=== PATIENT | male | born 1940 | race Caucasian/White ===

== ENCOUNTER 2020-03-18 14:06 | Observation (INO) ==
--- NOTE | 2020-03-18 14:11 | Emergency Department Note ---
Impression & Plan Cystitis, Dehydration, BLAKE (acute kidney injury), Benign prostatic hyperplasia ED Provider Note NAME: CAPRICE GUILLEN AGE: 80 SEX: M : 1940 ARRIVES VIA: Ambulance INFORMANT: Patient, ED PROVIDER(S): Josesito Block MD Chief Complaint: Difficulty with urination HPI: The patient has had about 5 days of worsening difficulty with urination associated burning with urination. Patient states he is not had these symptoms before. The patient denies any prior history of prostate issues. The patient does not take any narcotics or allergy medications. The patient has had some lower abdominal fullness. Patient states he has been having bowel movements but does have some scant blood with wiping. Patient denies any nausea but did have 2 episodes of vomiting earlier this week. The patient denies shortness of breath or chest pains, loss of taste or smell or Covid contacts or symptoms. The patient was seen at [facility] and referred here for further evaluation and treatment. The patient denies any prior history of kidney stones. The patient states that he does have some hesitancy and frequency issues and feels as though he is only able to urinate a very small amount like a teaspoon at a time. ROS: See HPI for pertinent positives and negatives. A total of 10 systems were reviewed and otherwise negative. Past medical history: See below Surgical history: See below Social history: See below Physical Exam: GENERAL: Wearing a mask. NAD, non-toxic. EYE EXAM: Normal conjunctiva. PERRL, no anisocoria and EOM's grossly intact w/o pain. NECK: Supple, no nuchal rigidity, no adenopathy, non-tender. No signs of meningismus. LUNGS: Clear to auscultation. Normal chest wall mechanics. HEART: NSR, no MRG. ABDOMEN: Abdomen soft, non-tender, normo-active bowel sounds, no masses, no rebound or guarding. No obvious suprapubic fullness. BACK: No CVA TTP. SKIN: No rashes and no bruising. UPPER EXTREMITIES: Upper extremities are grossly normal. LOWER EXTREMITIES: Grossly normal, no edema. NEURO EXAM: A&O x3, cranial nerves II-XII grossly intact, normal speech, moves all 4 extremities on command w/o issue. Differential diagnoses: Testicular torsion, mass, infection, hernia, hydrocele, epididymitis, STI, trauma, intra-abdominal process, as well as other pathologies. Course: Patient was seen and evaluated the bedside. Full history physical exam was performed. EKG: None Imaging Studies: Radiology results as stated below per my review in the radiologist's interpretation: CT SCAN OF THE ABDOMEN AND PELVIS WITHOUT CONTRAST CLINICAL HISTORY: Acute renal insufficiency. Difficulty with urination. COMPARISON STUDY: No previous studies for comparison. TECHNIQUE: CT scan of the abdomen and pelvis was performed from the lung bases to the proximal femurs. Images are reviewed in the axial, sagittal, and coronal planes. IV contrast was not administered for this examination. A dose lowering technique was utilized adhering to the principles of ALARA. CT DOSE: 502.99 mGy.cm FINDINGS: Lower chest: There is pulmonary emphysema. There is mild lower lobe cylindrical bronchiectasis. There is subpleural reticulation. There is a small hiatal hernia. Liver: There are hypodense hepatic lesions which approaches water attenuation. The largest measures 25 mm. These likely represent cysts. Gallbladder: Surgically absent Spleen: The spleen is lobulated. No focal masses are visualized in this noncontrast study Pancreas: Unremarkable. Adrenal glands: Unremarkable. Kidneys: There are multiple large bilateral renal cysts measuring up to 12 cm in diameter on the left and 5 cm on the right. In addition there is a probable 9 mm hyperdense cyst on the left. There are thin mural calcifications within the lower pole right renal cyst. There is an indeterminate 13 mm right renal mass, possibly solid. Dedicated renal imaging could be obtained in follow-up for further evaluation. There is no hydronephrosis. No ureteral calculi are visualized. Bowel: There are no transition zones to indicate bowel obstruction. There is no evidence of acute diverticulitis. There is no evidence of acute appendicitis. Peritoneum: There is no intraperitoneal free air or abdominal ascites. Vasculature: The abdominal aorta is normal in course and caliber. Adenopathy: There is a borderline enlarged right perivesical lymph node measuring 11 mm in diameter. Pelvic viscera: The prostate is enlarged measuring 6.5 cm in diameter. There is bladder wall thickening. While this may simply be secondary to chronic bladder outlet obstruction, a cystitis cannot be excluded. There is a penile calcification. This is extra urethral. Skeletal structures: The bones are osteopenic. There are old T12 and L1 compression deformities. IMPRESSION: 1. No evidence of bowel obstruction. No evidence of free air 2. Diverticulosis. No evidence of acute diverticulitis. No evidence of acute appendicitis 3. Large bilateral renal cysts. Indeterminate 13 mm right renal mass. Dedicated renal imaging could be obtained in follow-up as deemed clinically appropriate 4. No renal, ureteral, or bladder calculi identified 5. Moderate to marked prostatomegaly. Bladder wall thickening. 6. Borderline enlarged 11 mm right perivesical lymph node ACT 112: Negative or not required by law. Electronically signed by: Malcolm Baez M.D. 03/18/2020 4:40 PM Dictated: 03/18/20 1632Transcribed: 03/18/20 1634 Cardiac monitoring: An order was placed for continuous cardiac monitoring. The monitor shows a rate of 73 with sinus rhythm. MDM: Patient was seen due to concern for difficulty with voiding. Blood work is obt ained along with a bladder scan. Patient was given a small amount of IV fluids. The patient does have a creatinine of 2. No prior blood work for comparison. The patient had a mild leukocytosis with normal H&H and platelet count. The patient did have likely dehydration related symptoms as the patient was not retaining with bladder scan not showing retention. LFTs unremarkable. Urinalysis is difficult to interpret as the patient has been taking Azo. The patient does have bacteria present. Will be be treated presumptively especially in light of the patient's likely chronic bladder outlet obstruction and associated bladder wall thickening. The patient was treated with Rocephin. I did speak with the case worker and unfortunately given the patient does not have an outpatient provider cannot order outpatient blood work to reassess the patient's kidney function in 1 to 2 days. Given this I did speak with on-call hospitalist Dr. Cota. Patient was admitted to the medicine service. Past Med/Surg History Social History (Updated 03/18/20 @ 14:29 by Josesito Block MD) Smoking Status: Never smoker Hx Alcohol Use: No Hx Substance Use: No Preferred Language: Mac[place] Feels Safe at Home: Yes Allergies Allergies Allergy/AdvReac Type Severity Reaction Status Date / Time No Known Allergies Allergy Verified 03/18/20 18:44 Home Meds Home Medications Medication Instructions Recorded Confirmed alprazolam 0.5 mg PO TID PRN 03/18/20 03/18/20 lisinopril 2.5 mg PO QPM 03/18/20 03/18/20 pravastatin 40 mg PO HS 03/18/20 03/18/20 tamsulosin 0.8 mg PO HS 03/18/20 03/18/20 trazodone 100 mg PO HS 03/18/20 03/18/20 Results & Data (ED) Vital Signs Vital Signs - 24 hr 03/18/20 14:06 03/18/20 14:16 03/18/20 14:24 Temperature 36.6 C Temperature Source Oral Pulse Rate 85 87 85 Pulse Rate from SpO2 Sensor 88 Pulse Rhythm Regular Regular Respiratory Rate 18 19 18 Respiratory Effort / Characteristics Non-Labored Spontaneous Respiratory Depth Normal Respiratory Pattern Regular Blood Pressure 103/66 103/66 Blood Pressure Mean 78 71 Pulse Oximetry 95 95 95 Oxygen Delivery Method Room Air Room Air Sepsis Recent Fever Within 48 Hours No Sepsis New/Unexplained Change in Mental Status No Sepsis Action Taken by Nursing No Action Required 03/18/20 15:00 03/18/20 16:00 03/18/20 16:30 Temperature Temperature Source Pulse Rate 72 Pulse Rate from SpO2 Sensor 76 75 Pulse Rhythm Respiratory Rate 14 22 24 Respiratory Effort / Characteristics Respiratory Depth Respiratory Pattern Blood Pressure 98/62 L 106/62 Blood Pressure Mean 70 67 Pulse Oximetry 95 95 Oxygen Delivery Method Sepsis Recent Fever Within 48 Hours Sepsis New/Unexplained Change in Mental Status Sepsis Action Taken by Nursing 03/18/20 17:00 03/18/20 17:30 03/18/20 18:00 Temperature Temperature Source Pulse Rate 68 71 75 Pulse Rate from SpO2 Sensor Pulse Rhythm Respiratory Rate 13 21 21 Respiratory Effort / Characteristics Respiratory Depth Respiratory Pattern Blood Pressure Blood Pressure Mean Pulse Oximetry Oxygen Delivery Method Sepsis Recent Fever Within 48 Hours Sepsis New/Unexplained Change in Mental Status Sepsis Action Taken by Nursing 03/18/20 18:30 03/18/20 18:37 03/18/20 19:00 Temperature Temperature Source Pulse Rate 74 75 71 Pulse Rate from SpO2 Sensor 74 71 Pulse Rhythm Respiratory Rate 22 21 22 Respiratory Effort / Characteristics Respiratory Depth Respiratory Pattern Blood Pressure 112/63 108/64 Blood Pressure Mean 83 76 Pulse Oximetry 93 93 Oxygen Delivery Method Sepsis Recent Fever Within 48 Hours Sepsis New/Unexplained Change in Mental Status Sepsis Action Taken by Nursing 03/18/20 19:32 Temperature Temperature Source Pulse Rate 73 Pulse Rate from SpO2 Sensor Pulse Rhythm Respiratory Rate 22 Respiratory Effort / Characteristics Respiratory Depth Respiratory Pattern Blood Pressure 112/63 Blood Pressure Mean 83 Pulse Oximetry 94 Oxygen Delivery Method Sepsis Recent Fever Within 48 Hours Sepsis New/Unexplained Change in Mental Status Sepsis Action Taken by Long-Term Medications Current Medication List: was personally reviewed by me Laboratory Data Attestation: I reviewed the patient's lab results. Result diagrams: 03/18/20 14:29 03/18/20 14:29 Lab Results 03/18/20 03/18/20 03/18/20 Range/Units 14:29 14:29 14:29 WBC 12.61 H (4.8-10.8) K/uL RBC 4.64 L (4.7-6.1) M/uL Hgb 14.8 (14.0-18.0) g/dL Hct 44.3 (42-52) % MCV 95.5 (80-100) fL MCH 31.9 (25-34) pg MCHC 33.4 (32-36) g/dL RDW Std Deviation 48.3 H (36.4-46.3) fL RDW Coeff of Yang 13.8 (11.5-14.5) % Plt Count 285 (130-400) K/uL MPV 9.3 (7.4-10.4) fL Immature Gran % (Auto) 0.5 % Neut % (Auto) 79.3 % Lymph % (Auto) 9.3 % Baxter % (Auto) 9.1 % Eos % (Auto) 1.6 % Baso % (Auto) 0.2 % Neut # (Auto) 10.00 H (1.4-6.5) K/uL Lymph # (Auto) 1.17 L (1.2-3.4) K/uL Baxter # (Auto) 1.15 H (0.11-0.59) K/uL Eos # (Auto) 0.20 (0-0.5) K/uL Baso # (Auto) 0.03 (0-0.2) K/uL Immature Gran # (Auto) 0.06 H (0.00-0.02) K/uL PT 11.6 (9.0-12.0) Seconds INR 1.1 (0.9-1.1) Sodium 136 (136-145) mmol/L Potassium 4.5 (3.5-5.1) mmol/L Chloride 108 H (98-107) mmol/L Carbon Dioxide 20 L (21-32) mmol/L Anion Gap 7.0 (3-11) BUN 29 H (7-18) mg/dl Creatinine 2.07 H (0.6-1.4) mg/dl Est Cr Clr Drug Dosing 20.9 ml/min Est GFR ( Amer) 33.8 Est GFR (Non-Af Amer) 29.2 BUN/Creatinine Ratio 14.2 (10-20) Glucose 100 H (70-99) mg/dl Calcium 9.4 (8.5-10.1) mg/dl Magnesium 2.3 (1.8-2.4) mg/dl Total Bilirubin 0.7 (0.2-1) mg/dl AST 30 (15-37) U/L ALT 42 (12-78) U/L Alkaline Phosphatase 113 (45-117) U/L Total Protein 8.6 H (6.4-8.2) gm/dl Albumin 2.8 L (3.4-5.0) gm/dl Globulin 5.8 H (2.5-4.0) gm/dl Albumin/Globulin Ratio 0.5 L (0.9-2) TSH 1.000 (0.300-4.500) uIu/ml Urine Color Urine Appearance (Clear) Urine pH (4.5-7.5) Ur Specific [place] (1.000-1.060) Urine Protein (Negative) Urine Glucose (UA) (Negative) Urine Ketones (Negative) Urine Blood (Negative) Urine Nitrite (Negative) Urine Bilirubin (Negative) Urine Urobilinogen (Negative) Ur Leukocyte Esterase (Negative) Urine RBC (0-4) /hpf Urine WBC (0-5) /hpf Ur Epithelial Cells (0-5) /lpf Urine Bacteria (Negative) Hyaline Casts (0-5) /lpf Granular Casts (0) /lpf Urine Mucus (None Prsent) 03/18/20 Range/Units 17:35 WBC (4.8-10.8) K/uL RBC (4.7-6.1) M/uL Hgb (14.0-18.0) g/dL Hct (42-52) % MCV (80-100) fL MCH (25-34) pg MCHC (32-36) g/dL RDW Std Deviation (36.4-46.3) fL RDW Coeff of Yang (11.5-14.5) % Plt Count (130-400) K/uL MPV (7.4-10.4) fL Immature Gran % (Auto) % Neut % (Auto) % Lymph % (Auto) % Baxter % (Auto) % Eos % (Auto) % Baso % (Auto) % Neut # (Auto) (1.4-6.5) K/uL Lymph # (Auto) (1.2-3.4) K/uL Baxter # (Auto) (0.11-0.59) K/uL Eos # (Auto) (0-0.5) K/uL Baso # (Auto) (0-0.2) K/uL Immature Gran # (Auto) (0.00-0.02) K/uL PT (9.0-12.0) Seconds INR (0.9-1.1) Sodium (136-145) mmol/L Potassium (3.5-5.1) mmol/L Chloride (98-107) mmol/L Carbon Dioxide (21-32) mmol/L Anion Gap (3-11) BUN (7-18) mg/dl Creatinine (0.6-1.4) mg/dl Est Cr Clr Drug Dosing ml/min Est GFR ( Amer) Est GFR (Non-Af Amer) BUN/Creatinine Ratio (10-20) Glucose (70-99) mg/dl Calcium (8.5-10.1) mg/dl Magnesium (1.8-2.4) mg/dl Total Bilirubin (0.2-1) mg/dl AST (15-37) U/L ALT (12-78) U/L Alkaline Phosphatase (45-117) U/L Total Protein (6.4-8.2) gm/dl Albumin (3.4-5.0) gm/dl Globulin (2.5-4.0) gm/dl Albumin/Globulin Ratio (0.9-2) TSH (0.300-4.500) uIu/ml Urine Color [place] Urine Appearance Clear (Clear) Urine pH (4.5-7.5) Ur Specific [place] 1.016 (1.000-1.060) Urine Protein Negative (Negative) Urine Glucose (UA) (Negative) Urine Ketones (Negative) Urine Blood (Negative) Urine Nitrite (Negative) Urine Bilirubin (Negative) Urine Urobilinogen (Negative) Ur Leukocyte Esterase (Negative) Urine RBC 0-4 (0-4) /hpf Urine WBC 0-5 (0-5) /hpf Ur Epithelial Cells 0-5 (0-5) /lpf Urine Bacteria 1+ H (Negative) Hyaline Casts 10-30 H (0-5) /lpf Granular Casts 1-5 H (0) /lpf Urine Mucus Present A (None Prsent) Administered Medications Discontinued Medications Sodium Chloride (Nss) 500 mls @ 999 mls/hr IV .Q31M EDY Stop: 03/18/20 15:00 Last Infusion: 03/18/20 15:28 Dose: 0 mls/hr Documented by: [id number] Admin: 03/18/20 14:48 Dose: 999 mls/hr Documented by: [id number] Sodium Chloride (Nss 1000ml) 1,000 mls @ 999 mls/hr IV .Q1H1M ONE Stop: 03/18/20 17:50 Last Infusion: 03/18/20 18:33 Dose: 0 mls/hr Documented by: [id number] Admin: 03/18/20 17:04 Dose: 999 mls/hr Documented by: [id number] Ceftriaxone Sodium (Rocephin) 2,000 mg in 70 mls @ 140 mls/hr IV NOW STA Stop: 03/18/20 17:51 Last Infusion: 03/18/20 18:33 Dose: 0 mls/hr Documented by: [id number] Admin: 03/18/20 17:41 Dose: 140 mls/hr Documented by: [id number] Discharge Plan Visit Data Chief Complaint: Unable to Void ED Provider: Josesito Block Discharge Problem: Cystitis, Dehydration, BLAKE (acute kidney injury), Benign prostatic hyperplasia Forms Stand Alone Forms: [employer] Prescriptions Prescriptions: No Action pravastatin 40 mg tablet 40 mg PO HS RF: 0 alprazolam 0.5 mg tablet 0.5 mg PO TID PRN (Reason: Anxiety) RF: 0 tamsulosin 0.4 mg capsule 0.8 mg PO HS RF: 0 trazodone 100 mg tablet 100 mg PO HS RF: 0 lisinopril 2.5 mg tablet 2.5 mg PO QPM RF: 0 Discharge Problem: Benign prostatic hyperplasia Qualifiers: Lower urinary tract symptom presence: symptoms present Lower urinary tract symptom detail: urinary frequency Qualified Code(s): N40.1 - Benign prostatic hyperplasia with lower urinary tract symptoms
[2020-03-18] MEDS ORDERED: SODIUM CHLORIDE 0.9% 500 ML IV SCH (14:30)
[2020-03-18 14:42] LABS: Basophils # (auto) 0.03 K/uL (0-0.2); Basophils % (auto) 0.2 %; Eosinophils % (auto) 1.6 %; Hematocrit (blood only) 44.3 % (42-52); Hemoglobin 14.8 g/dL (14.0-18.0); Immature Granulocytes # (auto) 0.06 K/uL (0.00-0.02); Immature Granulocytes % (auto) 0.5 %; Lymphocytes # (auto) 1.17 K/uL (1.2-3.4); Lymphocytes % (auto) 9.3 %; Mean Corpuscular Hemoglobin 31.9 pg (25-34); Mean Corpuscular Hgb Conc 33.4 g/dL (32-36); Mean Corpuscular Volume 95.5 fL (80-100); Mean Platelet Volume 9.3 fL (7.4-10.4); Monocytes # (auto) 1.15 K/uL (0.11-0.59); Monocytes % (auto) 9.1 %; Neutrophils % (auto) 79.3 %; Platelet Count 285 K/uL (130-400); RDW Coefficient of Variation 13.8 % (11.5-14.5); RDW Standard Deviation 48.3 fL (36.4-46.3); Red Blood Count 4.64 M/uL (4.7-6.1); White Blood Count 12.61 K/uL (4.8-10.8)
[2020-03-18 14:55] LABS: INR 1.1 (0.9-1.1); Prothrombin Time 11.6 Seconds (9.0-12.0)
[2020-03-18 15:04] LABS: Albumin Level 2.8 gm/dl (3.4-5.0); BUN Creatinine Ratio 14.2 (10-20); Calcium 9.4 mg/dl (8.5-10.1); Creatinine Clr Calc Pharmacy 20.9 ml/min; Est GFR (African American) 33.8; Est GFR (Non-African American) 29.2; Magnesium 2.3 mg/dl (1.8-2.4); Potassium 4.5 mmol/L (3.5-5.1)
[2020-03-18 15:15] LABS: Albumin Globulin Ratio 0.5 (0.9-2); Bilirubin,Total 0.7 mg/dl (0.2-1); Globulin 5.8 gm/dl (2.5-4.0); Total Protein 8.6 gm/dl (6.4-8.2)
--- NOTE | 2020-03-18 16:01 | Electrocardiogram Report ---
Test Reason : Blood Pressure : / mmHG Vent. Rate : 076 BPM Atrial Rate : 076 BPM P-R Int : 190 ms QRS Dur : 130 ms QT Int : 410 ms P-R-T Axes : 058 -57 074 degrees QTc Int : 461 ms Normal sinus rhythm Left axis deviation Left bundle branch block Abnormal ECG No previous ECGs available Confirmed by Juan M Perez ([id number]) on 03/18/2020 4:01:00 PM Referred By: ER Confirmed By:Angel Perez
--- NOTE | 2020-03-18 16:42 | CT Scan Report ---
CT SCAN OF THE ABDOMEN AND PELVIS WITHOUT CONTRAST CLINICAL HISTORY: Acute renal insufficiency. Difficulty with urination. COMPARISON STUDY: No previous studies for comparison. TECHNIQUE: CT scan of the abdomen and pelvis was performed from the lung bases to the proximal femurs . Images are reviewed in the axial, sagittal, and coronal planes. IV contrast was not administered fo r this examination. A dose lowering technique was utilized adhering to the principles of ALARA. CT DOSE: 502.99 mGy.cm FINDINGS: Lower chest: There is pulmonary emphysema. There is mild lower lobe cylindrical bronchiectasis. There is subpleural reticulation. There is a small hiatal hernia. Liver: There are hypodense hepatic lesions which approaches water attenuation. The largest measures 2 5 mm. These likely represent cysts. Gallbladder: Surgically absent Spleen: The spleen is lobulated. No focal masses are visualized in this noncontrast study Pancreas: Unremarkable. Adrenal glands: Unremarkable. Kidneys: There are multiple large bilateral renal cysts measuring up to 12 cm in diameter on the left and 5 cm on the right. In addition there is a probable 9 mm hyperdense cyst on the left. There are t hin mural calcifications within the lower pole right renal cyst. There is an indeterminate 13 mm righ t renal mass, possibly solid. Dedicated renal imaging could be obtained in follow-up for further eval uation. There is no hydronephrosis. No ureteral calculi are visualized. Bowel: There are no transition zones to indicate bowel obstruction. There is no evidence of acute div erticulitis. There is no evidence of acute appendicitis. Peritoneum: There is no intraperitoneal free air or abdominal ascites. Vasculature: The abdominal aorta is normal in course and caliber. Adenopathy: There is a borderline enlarged right perivesical lymph node measuring 11 mm in diameter. Pelvic viscera: The prostate is enlarged measuring 6.5 cm in diameter. There is bladder wall thickeni ng. While this may simply be secondary to chronic bladder outlet obstruction, a cystitis cannot be ex cluded. There is a penile calcification. This is extra urethral. Skeletal structures: The bones are osteopenic. There are old T12 and L1 compression deformities. IMPRESSION: 1. No evidence of bowel obstruction. No evidence of free air 2. Diverticulosis. No evidence of acute diverticulitis. No evidence of acute appendicitis 3. Large bilateral renal cysts. Indeterminate 13 mm right renal mass. Dedicated renal imaging could b e obtained in follow-up as deemed clinically appropriate 4. No renal, ureteral, or bladder calculi identified 5. Moderate to marked prostatomegaly. Bladder wall thickening. 6. Borderline enlarged 11 mm right perivesical lymph node ACT 112: Negative or not required by law. Electronically signed by: Malcolm Baez M.D. 03/18/2020 4:40 PM
[2020-03-18] MEDS ORDERED: SODIUM CHLORIDE 0.9% 1000ML 1,000 ML IV ONE (16:50)
[2020-03-18] MEDS ORDERED: cefTRIAXone SODIUM 2,000 MG/70 ML BAG IV STA (17:22)
[2020-03-18 17:53] LABS: Appearance Urine Clear (Clear); Color Urine Orange
[2020-03-18 18:00] LABS: Protein Urine Negative (Negative); Specific Gravity Urine 1.016 (1.000-1.060); Sulfosalicylic Acid Urine Negative (Negative)
[2020-03-18 18:04] LABS: Mucus Urine Present (None Prsent)
[2020-03-18 18:05] LABS: Epithelial Cell Urine 0-5 /lpf (0-5)
[2020-03-18 18:06] LABS: Bacteria Urine 1+ (Negative); RBC Urine 0-4 /hpf (0-4); WBC Urine 0-5 /hpf (0-5)
[2020-03-18] MEDS ORDERED: CALCIUM CARBONATE 500 MG CHEWABLE TAB PO STA (19:12)
[2020-03-18] MEDS ORDERED: ONDANSETRON INJ 2 MG/ML 2 ML VIAL IV STA (19:12)
[2020-03-18] MEDS ORDERED: ACETAMINOPHEN 325 MG TAB PO PRN (19:57)
--- NOTE | 2020-03-18 20:05 | History & Physical Report ---
Date of Service March 18, 2020 Assessment & Plan (1) BLAKE (acute kidney injury): UTI Patient presents with clear symptoms of UTI, urinary frequency and discomfort with urination Started Using AZO which helped somewhat with symptoms WBC mildly elevated at 12 K UA with bacteria and mucus Follow urine cultx Started on empiric ceftriaxone, will continue BLAKE Cr elevated at 2.0 however no known baseline Cr at this time as pt resides in [place] and follows with his health care providers there Cr 1.3 in 2009 per our records possibly d/t dehydration, poor appetite and hx of vomiting Started on IVF in ED, will continue On CT large renal cysts noted and R renal mass - not clear if this is new and will need to obtain records from [place] providers - HIM consulted, PCP address in HPI above hold lisinopril Follow BMP (2) Benign prostatic hyperplasia: cont. home tamsulosin (3) HTN (hypertension) with goal to be determined: hold lisinopril for now d/t BLAKE monitor BP (4) HLD (hyperlipidemia): cont. home statin DVT ppx: SCDs - encourage ambulation Code: Full History of Present Illness Chief Complaint: Urinary frequency, dysuria Primary Care Provider: NO PCP Patient is an 80-year-old male, with CAD s/p stent placement, history of arrhythmia, status post pacemaker placement in [place] (Dr. Lynn), HTN, HLD, hx of CVA who usually follows with primary care doctor, Dr. Bernstein in [place], [place] and now presents with urinary frequency and dysuria. Patient states that he has been in [place] since May, he resides with his son Melvin Montes. Patient reports that he did not have any medical issues for a long time, until now. Patient reports that he had nausea and vomiting since Sunday (4 days ago), on Sunday he noticed increased urinary frequency, and severe discomfort with urination. He also reports poor appetite. In the ED patient was found to have elevated creatinine at 2.0. Bladder scan did not show urinary retention. Urine showed bacteria, and mucus, which was concerning for dehydration and UTI. Patient's urine is red-colored however he recently started to use AZO, which he obtained as outpatient. Patient denies any fevers, chills, chest pain, shortness of breath, abdominal pain. CT of the abdomen pelvis was also obtained in ED, which notes renal cysts and right renal mass. It is unclear how chronic these conditions are as patient follows with his healthcare providers in [place]. Patient reports that his PCP Dr. Damon Bernstein, [address] [facility], . In the ED patient was given IV fluids and started on ceftriaxone. [facility] by Dr. Gibson in 2009, BMP from 2009, shows creatinine of 1.3 and GFR 58, BUN 22. Allergies Allergy/AdvReac Type Severity Reaction Status Date / Time No Known Allergies Allergy Verified 03/18/20 18:44 Home Medications Medication Instructions Recorded Confirmed Type alprazolam 0.5 mg PO TID PRN 03/18/20 03/18/20 History lisinopril 2.5 mg PO QPM 03/18/20 03/18/20 History pravastatin 40 mg PO HS 03/18/20 03/18/20 History tamsulosin 0.8 mg PO HS 03/18/20 03/18/20 History trazodone 100 mg PO HS 03/18/20 03/18/20 History Past Med/Surg History Medical History (Updated 03/18/20 @ 20:27 by Dane Cota MD) Anxiety BPH (benign prostatic hyperplasia) CAD (coronary artery disease) HLD (hyperlipidemia) HTN (hypertension) with goal to be determined Pacemaker Family History Father Rheumatic fever Social History Smoking Status: Never smoker Hx Alcohol Use: No Hx Substance Use: No Preferred Language: Brazilian Feels Safe at Home: Yes Review of Systems Review of Systems: All systems reviewed & are unremarkable except as noted in HPI & below Constitutional: + anorexia; no fever and no chills Eyes: no problem reported Ear, Nose, Mouth, Throat: no problem reported Respiratory: no cough, no dyspnea and no problem reported Cardiovascular: no chest pain and no palpitations Gastrointestinal: + nausea and + vomiting (improved); no abdominal pain Genitourinary: + dysuria and + urinary urgency Musculoskeletal: no problem reported Integumentary: no problem reported Neurologic: no problem reported Psychiatric: no problem reported Endocrine: no problem reported Hematologic / Lymphatic: no problem reported Allergy / Immunological: no problem reported Physical Exam Constitutional: WD/WN, vitals as above Eyes: PERRL, conjunctivae normal, anicteric sclerae ENMT: external ear and nose normal, oropharynx normal Neck: normal visual inspection Respiratory: normal respiratory effort, lungs clear to auscultation Auscultation: no crackles, no rhonchi and no wheezes Cardiovascular: RRR, no murmur, no edema Chest (Breasts): Chest: normal inspection of chest Gastrointestinal (Abdomen): Inspection/Auscultation: abdomen normal to inspection and normal bowel sounds; abdomen not distended Percussion/Palpation: abdomen soft; abdomen nontender, no guarding and abdomen not rigid Musculoskeletal: no cyanosis or clubbing, extremities motor strength 5/5 Skin: no rashes, warm and dry Neurologic: PERRL, EOMI, accommodation nl, no face palsy, no dysarthria moves all extremities Psychiatric: A+Ox3, euthymic affect Genitourinary: no CVA tenderness Lymphatic: no lymphedema Results & Data Results & Data ([facility]) Vital Signs (Past 12 Hours) Vital Signs Temp Pulse Resp BP Pulse Ox 03/18/20 19:32 73 22 112/63 94 03/18/20 19:00 71 22 108/64 93 03/18/20 18:37 75 21 112/63 93 03/18/20 18:30 74 22 03/18/20 18:00 75 21 03/18/20 17:30 71 21 03/18/20 17:00 68 13 03/18/20 16:30 72 24 03/18/20 16:00 22 106/62 95 03/18/20 15:00 14 98/62 L 95 03/18/20 14:24 85 18 95 03/18/20 14:16 87 19 103/66 95 03/18/20 14:06 36.6 C 85 18 103/66 95 Laboratory Results 03/18/20 03/18/20 03/18/20 Range/Units 17:35 14:29 14:29 WBC (4.8-10.8) K/uL RBC (4.7-6.1) M/uL Hgb (14.0-18.0) g/dL Hct (42-52) % MCV (80-100) fL MCH (25-34) pg MCHC (32-36) g/dL RDW Std Deviation (36.4-46.3) fL RDW Coeff of Yang (11.5-14.5) % Plt Count (130-400) K/uL MPV (7.4-10.4) fL Immature Gran % (Auto) % Neut % (Auto) % Lymph % (Auto) % [place] % (Auto) % Eos % (Auto) % Baso % (Auto) % Neut # (Auto) (1.4-6.5) K/uL Lymph # (Auto) (1.2-3.4) K/uL [place] # (Auto) (0.11-0.59) K/uL Eos # (Auto) (0-0.5) K/uL Baso # (Auto) (0-0.2) K/uL Immature Gran # (Auto) (0.00-0.02) K/uL PT 11.6 (9.0-12.0) Seconds INR 1.1 (0.9-1.1) Sodium 136 (136-145) mmol/L Potassium 4.5 (3.5-5.1) mmol/L Chloride 108 H (98-107) mmol/L Carbon Dioxide 20 L (21-32) mmol/L Anion Gap 7.0 (3-11) BUN 29 H (7-18) mg/dl Creatinine 2.07 H (0.6-1.4) mg/dl Est Cr Clr Drug Dosing 20.9 ml/min Est GFR ( Amer) 33.8 Est GFR (Non-Af Amer) 29.2 BUN/Creatinine Ratio 14.2 (10-20) Glucose 100 H (70-99) mg/dl Calcium 9.4 (8.5-10.1) mg/dl Magnesium 2.3 (1.8-2.4) mg/dl Total Bilirubin 0.7 (0.2-1) mg/dl AST 30 (15-37) U/L ALT 42 (12-78) U/L Alkaline Phosphatase 113 (45-117) U/L Total Protein 8.6 H (6.4-8.2) gm/dl Albumin 2.8 L (3.4-5.0) gm/dl Globulin 5.8 H (2.5-4.0) gm/dl Albumin/Globulin Ratio 0.5 L (0.9-2) TSH 1.000 (0.300-4.500) uIu/ml Urine Color [place] Urine Appearance Clear (Clear) Urine pH (4.5-7.5) Ur Specific [place] 1.016 (1.000-1.060) Urine Protein Negative (Negative) Urine Glucose (UA) (Negative) Urine Ketones (Negative) Urine Blood (Negative) Urine Nitrite (Negative) Urine Bilirubin (Negative) Urine Urobilinogen (Negative) Ur Leukocyte Esterase (Negative) Urine RBC 0-4 (0-4) /hpf Urine WBC 0-5 (0-5) /hpf Ur Epithelial Cells 0-5 (0-5) /lpf Urine Bacteria 1+ H (Negative) Hyaline Casts 10-30 H (0-5) /lpf Granular Casts 1-5 H (0) /lpf Urine Mucus Present A (None Prsent) 03/18/20 Range/Units 14:29 WBC 12.61 H (4.8-10.8) K/uL RBC 4.64 L (4.7-6.1) M/uL Hgb 14.8 (14.0-18.0) g/dL Hct 44.3 (42-52) % MCV 95.5 (80-100) fL MCH 31.9 (25-34) pg MCHC 33.4 (32-36) g/dL RDW Std Deviation 48.3 H (36.4-46.3) fL RDW Coeff of Yang 13.8 (11.5-14.5) % Plt Count 285 (130-400) K/uL MPV 9.3 (7.4-10.4) fL Immature Gran % (Auto) 0.5 % Neut % (Auto) 79.3 % Lymph % (Auto) 9.3 % [place] % (Auto) 9.1 % Eos % (Auto) 1.6 % Baso % (Auto) 0.2 % Neut # (Auto) 10.00 H (1.4-6.5) K/uL Lymph # (Auto) 1.17 L (1.2-3.4) K/uL [place] # (Auto) 1.15 H (0.11-0.59) K/uL Eos # (Auto) 0.20 (0-0.5) K/uL Baso # (Auto) 0.03 (0-0.2) K/uL Immature Gran # (Auto) 0.06 H (0.00-0.02) K/uL PT (9.0-12.0) Seconds INR (0.9-1.1) Sodium (136-145) mmol/L Potassium (3.5-5.1) mmol/L Chloride (98-107) mmol/L Carbon Dioxide (21-32) mmol/L Anion Gap (3-11) BUN (7-18) mg/dl Creatinine (0.6-1.4) mg/dl Est Cr Clr Drug Dosing ml/min Est GFR ( Amer) Est GFR (Non-Af Amer) BUN/Creatinine Ratio (10-20) Glucose (70-99) mg/dl Calcium (8.5-10.1) mg/dl Magnesium (1.8-2.4) mg/dl Total Bilirubin (0.2-1) mg/dl AST (15-37) U/L ALT (12-78) U/L Alkaline Phosphatase (45-117) U/L Total Protein (6.4-8.2) gm/dl Albumin (3.4-5.0) gm/dl Globulin (2.5-4.0) gm/dl Albumin/Globulin Ratio (0.9-2) TSH (0.300-4.500) uIu/ml Urine Color Urine Appearance (Clear) Urine pH (4.5-7.5) Ur Specific [place] (1.000-1.060) Urine Protein (Negative) Urine Glucose (UA) (Negative) Urine Ketones (Negative) Urine Blood (Negative) Urine Nitrite (Negative) Urine Bilirubin (Negative) Urine Urobilinogen (Negative) Ur Leukocyte Esterase (Negative) Urine RBC (0-4) /hpf Urine WBC (0-5) /hpf Ur Epithelial Cells (0-5) /lpf Urine Bacteria (Negative) Hyaline Casts (0-5) /lpf Granular Casts (0) /lpf Urine Mucus (None Prsent) Diagnostic Findings CT Abdomen/ Pelvis IMPRESSION: 1. No evidence of bowel obstruction. No evidence of free air 2. Diverticulosis. No evidence of acute diverticulitis. No evidence of acute appendicitis 3. Large bilateral renal cysts. Indeterminate 13 mm right renal mass. Dedicated renal imaging could be obtained in follow-up as deemed clinically appropriate 4. No renal, ureteral, or bladder calculi identified 5. Moderate to marked prostatomegaly. Bladder wall thickening. 6. Borderline enlarged 11 mm right perivesical lymph node Code Status & VTE Plan VTE Prophylaxis Plan VTE Prophylaxis will be ordered: Yes (1) Benign prostatic hyperplasia Lower urinary tract symptom detail: urinary frequency Lower urinary tract symptom presence: symptoms present Qualified Code(s): N40.1 - Benign prostatic hyperplasia with lower urinary tract symptoms; R35.0 - Frequency of micturition
[2020-03-19 00:18] LABS: Hematocrit (blood only) 41.3 % (42-52); Hemoglobin 13.7 g/dL (14.0-18.0); Mean Corpuscular Hemoglobin 31.7 pg (25-34); Mean Corpuscular Hgb Conc 33.2 g/dL (32-36); Mean Corpuscular Volume 95.6 fL (80-100); Mean Platelet Volume 9.3 fL (7.4-10.4); Platelet Count 327 K/uL (130-400); RDW Standard Deviation 49.5 fL (36.4-46.3); Red Blood Count 4.32 M/uL (4.7-6.1); White Blood Count 9.97 K/uL (4.8-10.8)
[2020-03-19] MEDS: traZODone HCL 100 MG TAB PO SCH ×2 (01:09→21:40)
[2020-03-19] MEDS: TAMSULOSIN HCL 0.4 MG CAP PO SCH ×2 (01:09→21:41)
[2020-03-19] MEDS: ALPRAZolam 0.5 MG TABLET PO PRN (01:09)
[2020-03-19] MEDS: PRAVASTATIN SOD 40 MG TAB PO SCH ×2 (01:09→21:42)
[2020-03-19] MEDS: SODIUM CHLORIDE 0.9% 1000ML 1,000 ML IV SCH ×2 (01:10→13:38)
[2020-03-19] MEDS ORDERED: INFLUENZA VACCINE HIGH DOSE 65+ 0.7 ML SYR IM ONE (01:55)
[2020-03-19] MEDS ORDERED: INFLUENZA ADMINISTRATION CHARGE ONE (01:55)
[2020-03-19 07:05] LABS: Hematocrit (blood only) 41.6 % (42-52); Hemoglobin 13.5 g/dL (14.0-18.0); Mean Corpuscular Hemoglobin 31.2 pg (25-34); Mean Corpuscular Hgb Conc 32.5 g/dL (32-36); Mean Corpuscular Volume 96.1 fL (80-100); Mean Platelet Volume 9.4 fL (7.4-10.4); Platelet Count 300 K/uL (130-400); RDW Coefficient of Variation 13.9 % (11.5-14.5); RDW Standard Deviation 49.6 fL (36.4-46.3); Red Blood Count 4.33 M/uL (4.7-6.1); White Blood Count 9.02 K/uL (4.8-10.8)
[2020-03-19 07:35] LABS: BUN Creatinine Ratio 15.8 (10-20); Calcium 8.8 mg/dl (8.5-10.1); Creatinine Clr Calc Pharmacy 35.5 ml/min; Est GFR (African American) 46.8; Est GFR (Non-African American) 40.4; Potassium 4.4 mmol/L (3.5-5.1)
--- NOTE | 2020-03-19 15:55 | Urology Consultation ---
Date of Consultation March 19, 2020 Assessment & Plan (1) UTI (urinary tract infection): (2) Renal cyst: Suspected UTI/prostatitisimproved after 24 hours of antibiotics Continue tamsulosin Large prostate, likely could benefit from the addition of finasteride Check PSA as he has no recent PSA records and does have an abnormal lymph node adjacent to the bladder Bilateral renal cystic disease Several large cysts, but benign in appearance There is a hyperdense lesion in the right kidneythe nature of this lesion is difficult to classify on the Noncon study Tentative plan for outpatient follow-up and repeat imaging of this cyst/lesion to determine its true nature Creatinine elevated on arrival but improving already with hydration History of Present Illness Attending Physician: Kyle Montero MD History of Present Illness 80-year-old gentleman who lives in the [facility] the majority of his time it is been in the [facility] for the past several months and plans to remain here for another several months secondary to the Covid crisis Is presented to the emergency room with difficulty urinating Suspected UTI Preliminary urine culture is negative, his UA does show some features consistent with infection Imaging shows substantial bilateral cystic disease with a very large cyst on the left and one hyperdense cyst versus small renal mass on the right This was a noncontrast study and does not definitively identify the nature of these lesionsparticularly the small hyperdense lesion on the right He also was noted to have a small borderline swollen lymph node in the left pelvis He has a large prostate He has been on tamsulosin in the past Does not believe he is ever seen a urologist Uncertain PSA history Past surgical history is significant for pacemaker placement Allergies Allergy/AdvReac Type Severity Reaction Status Date / Time No Known Allergies Allergy Verified 03/18/20 18:44 Home Medications Medication Instructions Recorded Confirmed Type alprazolam 0.5 mg PO TID PRN 03/18/20 03/18/20 History lisinopril 2.5 mg PO QPM 03/18/20 03/18/20 History pravastatin 40 mg PO HS 03/18/20 03/18/20 History tamsulosin 0.8 mg PO HS 03/18/20 03/18/20 History trazodone 100 mg PO HS 03/18/20 03/18/20 History Patient History Medical History Anxiety BPH (benign prostatic hyperplasia) CAD (coronary artery disease) HLD (hyperlipidemia) HTN (hypertension) with goal to be determined Pacemaker Family History Father Rheumatic fever Social History Smoking Status: Former smoker Smoking End Date: 1989; Second Hand Exposure: No; Do You Dip or Chew Tobacco: No; Tobacco Cessation Education Requested by Patient: No Hx Alcohol Use: No Hx Substance Use: No Preferred Language: Kazakh Communication Ability: Effective Beliefs That Will Affect Care: None Current Living Situation: Alone Other Information That Helps Us Care for You: No Feels Safe at Home: Yes Safety Concerns: Feels Safe At This Time Assistive Devices: None Review of Systems Constitutional: no fever, no chills and no fatigue Eyes: no worsening vision Ear, Nose, Mouth, Throat: no facial pain and no pain with swallowing Respiratory: no cough and no dyspnea Cardiovascular: no chest pain and no palpitations Gastrointestinal: no abdominal pain, no nausea and no vomiting Genitourinary: + dysuria, + difficulty urinating, + urinary frequency, + post- void dribbling, + genital pain and + urinary urgency Musculoskeletal: no back pain Integumentary: no rash and no urticaria Neurologic: no gait abnormality and no unsteadiness Psychiatric: no behavioral changes and no depression Endocrine: no fatigue Physical Exam Constitutional: well developed and well nourished Neck: neck nontender Respiratory: normal respiratory effort; no respiratory distress and does not use accessory muscles Cardiovascular: Rate/Rhythm: regular rate Vessels: radial pulses present Extremities: no edema Gastrointestinal (Abdomen): Inspection/Auscultation: abdomen normal to inspection Percussion/Palpation: abdomen soft; abdomen nontender and no guarding Musculoskeletal: Head/Neck/Chest: normocephalic and head atraumatic Extremities: extremities normal to inspection Skin: no rashes and no lesions Trauma: no evidence of skin trauma Neurologic: awake; not obtunded Speech / Cognition: normal speech Motor/Sensory: no tremor Psychiatric: Orientation: alert and oriented x 3 Genitourinary: no CVA tenderness Lymphatic: no lymphadenopathy Results & Data ([facility]) Vital Signs (Past 12 Hours) Vital Signs Temp Pulse Resp BP Pulse Ox 03/19/20 15:30 36.6 C 80 18 102/76 94 03/19/20 11:24 66 18 132/69 93 03/19/20 07:12 36.4 C L 63 18 128/75 93 PG Care Time/CCT Total # of Minutes Spent Total Time Spent with Patient: Total time spent is greater than 50% in coordination of care (as documented) at patient's floor/unit and/or counseling patient: Coding Level of Care Code 85370 Inpt Consult Level 4 Diagnoses UTI (urinary tract infection) N39.0 Renal cyst N28.1
[2020-03-19] MEDS: cefTRIAXone SODIUM 1,000 MG in DEXTROSE 5% 50 ML IV SCH (16:22)
[2020-03-19] MEDS: CALCIUM CARBONATE 500 MG CHEWABLE TAB PO PRN (17:12)
--- NOTE | 2020-03-19 20:31 | Hospitalist Progress Note ---
Date of Service March 19, 2020 Assessment & Plan (1) BLAKE (acute kidney injury): UTI Per admitting service notes Patient presents with clear symptoms of UTI, urinary frequency and discomfort with urination Started Using AZO which helped somewhat with symptoms WBC mildly elevated at 12 K UA with bacteria and mucus Follow urine cultx Started on empiric ceftriaxone, will continue 03/19/2020 Urine culture pending Continue empiric ceftriaxone Medically improving Urology consulted for bilateral renal cysts, prostate enlargement BLAKE Admitting service notes Cr elevated at 2.0 however no known baseline Cr at this time as pt resides in [place] and follows with his health care providers there Cr 1.3 in 2009 per our records possibly d/t dehydration, poor appetite and hx of vomiting Started on IVF in ED, will continue On CT large renal cysts noted and R renal mass - not clear if this is new and will need to obtain records from [place] providers - HIM consulted, PCP address in HPI above hold lisinopril Follow BMP 03/19/2020 Creatinine improved to 1.9 Continue gentle IV hydration (2) Benign prostatic hyperplasia: cont. home tamsulosin (3) HTN (hypertension) with goal to be determined: hold lisinopril for now d/t BLAKE monitor BP (4) HLD (hyperlipidemia): cont. home statin DVT ppx: SCDs - encourage ambulation Code: Full Disposition Will need PT and OT evaluation Lives with son at home Admission and Anticipated Discharge Date Admission Date: March 18, 2020 Subjective Follow-up for UTI, acute kidney injury Seen resting in bed, comfortable, not in distress Appears somewhat weak States he feels improved compared to yesterday but still feeling weak Denies fevers or chills, nausea vomiting, abdominal pain No hematuria, still having some dysuria frequency No chest pain, no shortness of breath no palpitations no dizziness next No other symptoms Review of Systems Review of Systems: All systems reviewed & are unremarkable except as noted in Subjective Physical Exam Physical Exam: General- oriented x 3, not in distress, speaks in sentences with no effort or accessory muscle use Head- atraumatic Eyes- PERRL, EOMI, anicteric ENT- oropharynx clear Neck- supple, no JVD, no adenopathy, no thyromegaly; carotids +2/2, no bruits appreciated Lungs- clear to auscultation bilaterally, no rales/wheezes Heart- normal rate, regular rhythm; no murmur, no gallop, no rub appreciated Abdomen- normal bowel sounds, nondistended, soft, nontender, no masses or hepatosplenomegaly No CVA tenderness Extremities- no pretibial edema, no calf tenderness; peripheral pulses intact Neuro- alert, oriented x 3; CN 2-12 grossly intact; motor 5/5 bilaterally;sensation 100% on all extremities; no other gross focal neurologic deficits Skin- warm & dry Results & Data Results & Data ([facility]) Vital Signs (Past 12 Hours) Vital Signs Temp Pulse Resp BP Pulse Ox 03/19/20 19:14 36.6 C 64 16 124/73 91 03/19/20 18:55 36.9 C 68 19 113/67 92 03/19/20 15:30 36.6 C 80 18 102/76 94 03/19/20 11:24 66 18 132/69 93 Laboratory Results Laboratory Results - last 24 hr 03/18/20 03/18/20 03/19/20 23:54 Unknown 06:44 WBC 9.97 9.02 RBC 4.32 L 4.33 L Hgb 13.7 L 13.5 L Hct 41.3 L 41.6 L MCV 95.6 96.1 MCH 31.7 31.2 MCHC 33.2 32.5 RDW Std Deviation 49.5 H 49.6 H RDW Coeff of Yang 14.0 13.9 Plt Count 327 300 MPV 9.3 9.4 Sodium Potassium Chloride Carbon Dioxide Anion Gap BUN Creatinine Est Cr Clr Drug Dosing Est GFR ( Amer) Est GFR (Non-Af Amer) BUN/Creatinine Ratio Glucose Calcium Prostate Specific Ag SARS-CoV-2 Ag (Rapid) Negative 03/19/20 03/19/20 06:44 16:11 WBC RBC Hgb Hct MCV MCH MCHC RDW Std Deviation RDW Coeff of Yang Plt Count MPV Sodium 140 Potassium 4.4 Chloride 111 H Carbon Dioxide 21 Anion Gap 8.0 BUN 25 H Creatinine 1.58 H D Est Cr Clr Drug Dosing 35.5 Est GFR ( Amer) 46.8 Est GFR (Non-Af Amer) 40.4 BUN/Creatinine Ratio 15.8 Glucose 85 Calcium 8.8 Prostate Specific Ag 64.600 H SARS-CoV-2 Ag (Rapid) Medications Administered Current Inpatient Medications Acetaminophen (Acetaminophen 325 Mg Tab) 650 mg PO Q4H PRN PRN Reason: Pain or Fever Stop: 04/17/20 19:56 Alprazolam (Alprazolam 0.5 Mg Tablet) 0.5 mg PO Q12H PRN PRN Reason: Anxiety Stop: 04/17/20 23:38 Last Admin: 03/19/20 01:09 Dose: 0.5 mg Documented by: Calcium Carbonate (Calcium Carbonate 500 Mg Chewable Tab) 500 mg PO Q6H PRN PRN Reason: Indigestion Stop: 04/18/20 16:50 Last Admin: 03/19/20 17:12 Dose: 500 mg Documented by: Finasteride (Finasteride 5 Mg Tab) 5 mg PO QAM [facility] Stop: 04/19/20 08:59 Sodium Chloride (Nss 1000ml) 1,000 mls @ 80 mls/hr IV .[id number] [facility] Stop: 04/17/20 23:38 Last Admin: 03/19/20 13:38 Dose: 80 mls/hr Documented by: Ceftriaxone Sodium 1,000 mg/ (Dextrose) 50 mls @ 100 mls/hr IV Q24H [facility]; Protocol Stop: 03/28/20 15:59 Last Infusion: 03/19/20 17:07 Dose: Infused Documented by: Pravastatin Sodium (Pravastatin Sod 40 Mg Tab) 40 mg PO [facility] Stop: 04/17/20 23:38 Last Admin: 03/19/20 01:09 Dose: 40 mg Documented by: Tamsulosin HCl (Tamsulosin Hcl 0.4 Mg Cap) 0.8 mg PO [facility] Stop: 04/17/20 23:38 Last Admin: 03/19/20 01:09 Dose: 0.8 mg Documented by: Trazodone HCl (Trazodone Hcl 100 Mg Tab) 100 mg PO [facility] Stop: 04/18/20 00:34 Last Admin: 03/19/20 01:09 Dose: 100 mg Documented by: Medications alprazolam 0.5 mg PO TID PRN 03/18/20 [History Confirmed 03/18/20] lisinopril 2.5 mg PO QPM 03/18/20 [History Confirmed 03/18/20] pravastatin 40 mg PO HS 03/18/20 [History Confirmed 03/18/20] tamsulosin 0.8 mg PO HS 03/18/20 [History Confirmed 03/18/20] trazodone 100 mg PO 03/18/20 [History Confirmed 03/18/20] Home Medications Acetaminophen (Acetaminophen 325 Mg Tab) 650 mg PO Q4H PRN PRN Reason: Pain or Fever Stop: 04/17/20 19:56 Alprazolam (Alprazolam 0.5 Mg Tablet) 0.5 mg PO Q12H PRN PRN Reason: Anxiety Stop: 04/17/20 23:38 Last Admin: 03/19/20 01:09 Dose: 0.5 mg Documented by: Calcium Carbonate (Calcium Carbonate 500 Mg Chewable Tab) 500 mg PO Q6H PRN PRN Reason: Indigestion Stop: 04/18/20 16:50 Last Admin: 03/19/20 17:12 Dose: 500 mg Documented by: Finasteride (Finasteride 5 Mg Tab) 5 mg PO [facility] Stop: 04/19/20 08:59 Sodium Chloride (Nss 1000ml) 1,000 mls @ 80 mls/hr IV .[id number] [facility] Stop: 04/17/20 23:38 Last Admin: 03/19/20 13:38 Dose: 80 mls/hr Documented by: Ceftriaxone Sodium 1,000 mg/ (Dextrose) 50 mls @ 100 mls/hr IV Q24H [facility]; Protocol Stop: 03/28/20 15:59 Last Infusion: 03/19/20 17:07 Dose: Infused Documented by: Pravastatin Sodium (Pravastatin Sod 40 Mg Tab) 40 mg PO [facility] Stop: 04/17/20 23:38 Last Admin: 03/19/20 01:09 Dose: 40 mg Documented by: Tamsulosin HCl (Tamsulosin Hcl 0.4 Mg Cap) 0.8 mg PO [facility] Stop: 04/17/20 23:38 Last Admin: 03/19/20 01:09 Dose: 0.8 mg Documented by: Trazodone HCl (Trazodone Hcl 100 Mg Tab) 100 mg PO [facility] Stop: 04/18/20 00:34 Last Admin: 03/19/20 01:09 Dose: 100 mg Documented by: (1) Benign prostatic hyperplasia Lower urinary tract symptom detail: urinary frequency Lower urinary tract symptom presence: symptoms present Qualified Code(s): N40.1 - Benign prostatic hyperplasia with lower urinary tract symptoms; R35.0 - Frequency of micturition
[2020-03-20] MEDS: SODIUM CHLORIDE 0.9% 1000ML 1,000 ML IV SCH ×2 (02:44→16:00)
[2020-03-20 04:37] LABS: Basophils # (auto) 0.02 K/uL (0-0.2); Basophils % (auto) 0.2 %; Eosinophils # (auto) 0.42 K/uL (0-0.5); Eosinophils % (auto) 4.9 %; Hematocrit (blood only) 42.4 % (42-52); Hemoglobin 13.9 g/dL (14.0-18.0); Immature Granulocytes # (auto) 0.07 K/uL (0.00-0.02); Immature Granulocytes % (auto) 0.8 %; Lymphocytes # (auto) 1.47 K/uL (1.2-3.4); Lymphocytes % (auto) 17.2 %; Mean Corpuscular Hemoglobin 31.3 pg (25-34); Mean Corpuscular Hgb Conc 32.8 g/dL (32-36); Mean Corpuscular Volume 95.5 fL (80-100); Mean Platelet Volume 9.2 fL (7.4-10.4); Monocytes # (auto) 0.92 K/uL (0.11-0.59); Monocytes % (auto) 10.7 %; Neutrophils # (auto) 5.67 K/uL (1.4-6.5); Neutrophils % (auto) 66.2 %; Platelet Count 304 K/uL (130-400); RDW Coefficient of Variation 13.8 % (11.5-14.5); RDW Standard Deviation 48.3 fL (36.4-46.3); Red Blood Count 4.44 M/uL (4.7-6.1); White Blood Count 8.57 K/uL (4.8-10.8)
[2020-03-20 04:55] LABS: BUN Creatinine Ratio 15.2 (10-20); Calcium 9.4 mg/dl (8.5-10.1); Creatinine Clr Calc Pharmacy 38.9 ml/min; Est GFR (African American) 52.4; Est GFR (Non-African American) 45.2; Potassium 4.7 mmol/L (3.5-5.1)
[2020-03-20 05:00] LABS: Prostate Specific Antigen 60.3 ng/ml (0-4)
[2020-03-20] MEDS: FINASTERIDE 5 MG TAB PO SCH (08:30)
[2020-03-20] MEDS: CALCIUM CARBONATE 500 MG CHEWABLE TAB PO PRN (11:13)
[2020-03-20] MEDS: PHENAZOPYRIDINE HCL 200 MG TAB PO PRN ×2 (12:00→21:33)
[2020-03-20] MEDS: cefTRIAXone SODIUM 1,000 MG in DEXTROSE 5% 50 ML IV SCH (15:55)
--- NOTE | 2020-03-20 18:51 | Hospitalist Progress Note ---
Date of Service March 20, 2020 Assessment & Plan (1) BLAKE (acute kidney injury): UTI Per admitting service notes Patient presents with clear symptoms of UTI, urinary frequency and discomfort with urination Started Using AZO which helped somewhat with symptoms WBC mildly elevated at 12 K UA with bacteria and mucus Follow urine cultx Started on empiric ceftriaxone, will continue 03/19/2020 Urine culture negative so far, continue to monitor Continue empiric ceftriaxone Medically improving Urology consulted for bilateral renal cysts, prostate enlargement Recommend addition of finasteride Check PSA given abnormal lymph node adjacent to the bladder Several large cysts benign in appearance Tentative plan for outpatient follow-up and repeat imaging of the cyst/lesion to determine its true nature BLAKE Admitting service notes Cr elevated at 2.0 however no known baseline Cr at this time as pt resides in [place] and follows with his health care providers there Cr 1.3 in 2009 per our records possibly d/t dehydration, poor appetite and hx of vomiting Started on IVF in ED, will continue On CT large renal cysts noted and R renal mass - not clear if this is new and will need to obtain records from [place] providers - HIM consulted, PCP address in HPI above hold lisinopril Follow BMP 03/20/2020 Creatinine improved to 1.4 given gentle IV hydration (2) Benign prostatic hyperplasia: cont. home tamsulosin (3) HTN (hypertension) with goal to be determined: hold lisinopril for now d/t BLAKE monitor BP (4) HLD (hyperlipidemia): cont. home statin DVT ppx: SCDs - encourage ambulation Code: Full Disposition Will need PT and OT evaluation Lives with son at home Admission and Anticipated Discharge Date Admission Date: March 19, 2020 Subjective Follow-up for UTI, weakness, etc. Seen resting in bed, comfortable, not in distress Oriented x3 Denies abdominal pain but does report dysuria No hematuria Denies fevers or chills, nausea or vomiting Denies chest pain, shortness of breath, palpitations, dizziness Review of Systems Review of Systems: All systems reviewed & are unremarkable except as noted in Subjective Physical Exam Physical Exam: General- oriented x 3, not in distress, speaks in sentences with no effort or accessory muscle use Eyes- anicteric Neck- no JVD Lungs- clear breath sounds bilaterally Heart- normal rate, regular rhythm; no murmurs Abdomen- normal bowel sounds, nondistended, soft, nontender Extremities- no pretibial edema, no calf tenderness Neuro- alert, oriented x 3; no gross focal neurologic deficits Skin- warm & dry Results & Data Results & Data ([facility]) Laboratory Results Laboratory Results - last 24 hr 03/20/20 03/20/20 04:18 04:18 WBC 8.57 RBC 4.44 L Hgb 13.9 L Hct 42.4 MCV 95.5 MCH 31.3 MCHC 32.8 RDW Std Deviation 48.3 H RDW Coeff of Yang 13.8 Plt Count 304 MPV 9.2 Immature Gran % (Auto) 0.8 Neut % (Auto) 66.2 Lymph % (Auto) 17.2 [place] % (Auto) 10.7 Eos % (Auto) 4.9 Baso % (Auto) 0.2 Neut # (Auto) 5.67 Lymph # (Auto) 1.47 [place] # (Auto) 0.92 H Eos # (Auto) 0.42 Baso # (Auto) 0.02 Immature Gran # (Auto) 0.07 H Sodium 140 Potassium 4.7 Chloride 113 H Carbon Dioxide 22 Anion Gap 5.0 BUN 22 H Creatinine 1.44 H Est Cr Clr Drug Dosing 38.9 Est GFR ( Amer) 52.4 Est GFR (Non-Af Amer) 45.2 BUN/Creatinine Ratio 15.2 Glucose 96 Calcium 9.4 Prostate Specific Ag 60.300 H (1) Benign prostatic hyperplasia Lower urinary tract symptom detail: urinary frequency Lower urinary tract symptom presence: symptoms present Qualified Code(s): N40.1 - Benign prostatic hyperplasia with lower urinary tract symptoms; R35.0 - Frequency of micturition
[2020-03-20] MEDS: PRAVASTATIN SOD 40 MG TAB PO SCH (21:31)
[2020-03-20] MEDS: TAMSULOSIN HCL 0.4 MG CAP PO SCH (21:31)
[2020-03-20] MEDS: traZODone HCL 100 MG TAB PO SCH (21:32)
[2020-03-20] MEDS: ALPRAZolam 0.5 MG TABLET PO PRN (21:32)
[2020-03-21 06:49] LABS: Basophils # (auto) 0.03 K/uL (0-0.2); Basophils % (auto) 0.4 %; Eosinophils # (auto) 0.37 K/uL (0-0.5); Eosinophils % (auto) 5.3 %; Hematocrit (blood only) 42.6 % (42-52); Hemoglobin 14.1 g/dL (14.0-18.0); Immature Granulocytes # (auto) 0.06 K/uL (0.00-0.02); Immature Granulocytes % (auto) 0.9 %; Lymphocytes # (auto) 1.13 K/uL (1.2-3.4); Lymphocytes % (auto) 16.1 %; Mean Corpuscular Hemoglobin 31.5 pg (25-34); Mean Corpuscular Hgb Conc 33.1 g/dL (32-36); Mean Corpuscular Volume 95.1 fL (80-100); Mean Platelet Volume 9.2 fL (7.4-10.4); Monocytes # (auto) 0.84 K/uL (0.11-0.59); Monocytes % (auto) 11.9 %; Neutrophils % (auto) 65.4 %; Platelet Count 299 K/uL (130-400); RDW Coefficient of Variation 13.6 % (11.5-14.5); RDW Standard Deviation 47.6 fL (36.4-46.3); Red Blood Count 4.48 M/uL (4.7-6.1); White Blood Count 7.03 K/uL (4.8-10.8)
[2020-03-21 07:15] LABS: BUN Creatinine Ratio 14.8 (10-20); Calcium 8.9 mg/dl (8.5-10.1); Creatinine Clr Calc Pharmacy 44.5 ml/min; Est GFR (African American) 61.6; Est GFR (Non-African American) 53.1; Potassium 4.4 mmol/L (3.5-5.1)
[2020-03-21 07:20] LABS: Prostate Specific Antigen 49.6 ng/ml (0-4)
--- NOTE | 2020-03-21 07:30 | Ultrasound Report ---
US venous doppler UE LT CLINICAL HISTORY: Left upper extremity edema COMPARISON STUDY: No previous studies for comparison. FINDINGS: No intraluminal thrombus was visualized. The internal jugular, subclavian, axillary, cephal ic, brachial, basilic, radial, and ulnar veins were patent. IMPRESSION: No evidence of left upper extremity DVT. ACT 112: Negative or not required by law. Electronically signed by: Malcolm Baez M.D. 03/21/2020 7:28 AM
[2020-03-21] MEDS ORDERED: FINASTERIDE 5 MG TAB PO SCH (09:00)
[2020-03-21] MEDS: FINASTERIDE 5 MG TAB PO SCH (09:16)
[2020-03-21] MEDS: PHENAZOPYRIDINE HCL 200 MG TAB PO PRN (09:17)
[2020-03-21] MEDS: ALPRAZolam 0.5 MG TABLET PO PRN (09:20)
--- NOTE | 2020-03-21 09:41 | Urology Progress Note ---
Date of Service March 21, 2020 Assessment & Plan (1) Renal cyst: (2) Prostatitis: Prostatitis Plan for 28-day course of total antibiotic coverageCipro should be appropriate Creatinine has improved PSA has dropped significantly in a short period of time Subjectively feeling better Renal cysts/lesion Outpatient reimage Stable for discharge home from a standpoint Admission and Anticipated Discharge Date Admission Date: March 19, 2020 Subjective Improving He still is voiding quite frequently but having less dysuria and pain Higher volumes with each void Creatinine has improved PSA has dropped precipitously in 24 hours implying that this truly is prostatitis Physical Exam Physical Exam: Prostate exam deferred secondary to acute prostatitis Constitutional: well developed and well nourished Respiratory: no respiratory distress Cardiovascular: Extremities: no pedal edema Gastrointestinal (Abdomen): Inspection/Auscultation: abdomen normal to inspection Results & Data ([facility]) Vital Signs (Past 12 Hours) Vital Signs Temp Pulse Pulse Resp BP Pulse Ox 03/21/20 07:00 36.3 C L 76 18 107/58 L 94 03/21/20 04:06 36.5 C 71 19 137/81 91 03/21/20 00:00 70 03/20/20 23:43 36.7 C 70 17 112/76 95 PG Care Time/CCT Total # of Minutes Spent Total Time Spent with Patient: Total time spent is greater than 50% in coordination of care (as documented) at patient's floor/unit and/or counseling patient: Coding Level of Care Code 72079 Subseq Hosp Care Lvl 2 Diagnoses Renal cyst N28.1 Prostatitis N41.9
[2020-03-21] MEDS: cefTRIAXone SODIUM 1,000 MG in DEXTROSE 5% 50 ML IV SCH (16:37)
--- NOTE | 2020-03-21 16:37 | Hospitalist Progress Note ---
Date of Service March 21, 2020 Assessment & Plan (1) BLAKE (acute kidney injury): Acute prostatitis Per admitting service notes Patient presents with clear symptoms of UTI, urinary frequency and discomfort with urination Started Using AZO which helped somewhat with symptoms WBC mildly elevated at 12 K UA with bacteria and mucus Started on empiric ceftriaxone Patient significantly improved with IV ceftriaxone Urine culture negative Received ceftriaxone IV x3 days PSA decreased from 64,000 from 49,000 Symptoms likely secondary to prostatitis by urologist Dr. Meredith Recommend to complete 28-day course of antibiotics Will prescribe ciprofloxacin 500 mg twice daily x25 days Follow-up with urologist Dr. Meredith in 1 to 2 weeks Bilateral renal cysts, prostate enlargement CT abdomen pelvis: 1. No evidence of bowel obstruction. No evidence of free air 2. Diverticulosis. No evidence of acute diverticulitis. No evidence of acute appendicitis 3. Large bilateral renal cysts. Indeterminate 13 mm right renal mass. Dedicated renal imaging could be obtained in follow-up as deemed clinically appropriate 4. No renal, ureteral, or bladder calculi identified 5. Moderate to marked prostatomegaly. Bladder wall thickening. 6. Borderline enlarged 11 mm right perivesical lymph node --Finasteride started --Follow-up with urologist Dr. Meredith in 1 to 2 weeks, will need repeat imaging studies Acute kidney injury Per Admitting service notes Cr elevated at 2.0 however no known baseline Cr at this time as [place] resides in [place] and follows with his health care providers there Cr 1.3 in 2009 per our records possibly d/t dehydration, poor appetite and hx of vomiting During IV fluids, lisinopril held Creatinine improved, 1.21 on discharge day Repeat BMP on follow-up with PCP in 1 week (2) Benign prostatic hyperplasia: Finasteride started Continue usual tamsulosin Follow-up with urologist plan #1 (3) HTN (hypertension) with goal to be determined: Resume lisinopril (4) HLD (hyperlipidemia): cont. home statin Disposition Discharge to home Follow-up with PCP in 1 week, will establish with PCP Follow-up with larissa Cast urologist t Dr. Meredith in 1- 2 weeks Admission and Anticipated Discharge Date Admission Date: March 19, 2020 Subjective ff up for acute prostatitis Seen sitting up in bed, comfortable, not in distress, oriented x3, in good spirits States he feels much better overall Weakness has resolved Ambulating in the hallways with no problems Still has some frequency but no dysuria No abdominal pain, nausea or vomiting, fevers or chills Denies other symptoms States that he is ready and would like to be discharged today Review of Systems Review of Systems: All systems reviewed & are unremarkable except as noted in Subjective Physical Exam Physical Exam: General- oriented x 3, not in distress, speaks in sentences with no effort or accessory muscle use Eyes- anicteric Neck- no JVD Lungs- clear breath sounds bilaterally, no crackles, no wheezing Heart- normal rate, regular rhythm; no murmurs Abdomen- normal bowel sounds, nondistended, soft, nontender Extremities- no pretibial edema, no calf tenderness Neuro- alert, oriented x 3; no gross focal neurologic deficits Skin- warm & dry Results & Data Results & Data ([facility]) Vital Signs (Past 12 Hours) Vital Signs Temp Pulse Pulse Resp BP BP Pulse Ox 03/21/20 15:00 36.4 C L 68 18 142/81 H 93 03/21/20 14:20 79 03/21/20 11:00 36.6 C 77 16 106/70 92 03/21/20 07:00 36.3 C L 60 76 18 107/58 L 94 Laboratory Results Laboratory Results - last 24 hr 03/21/20 03/21/20 06:20 06:20 WBC 7.03 RBC 4.48 L Hgb 14.1 Hct 42.6 MCV 95.1 MCH 31.5 MCHC 33.1 RDW Std Deviation 47.6 H RDW Coeff of Yang 13.6 Plt Count 299 MPV 9.2 Immature Gran % (Auto) 0.9 Neut % (Auto) 65.4 Lymph % (Auto) 16.1 [place] % (Auto) 11.9 Eos % (Auto) 5.3 Baso % (Auto) 0.4 Neut # (Auto) 4.60 Lymph # (Auto) 1.13 L [place] # (Auto) 0.84 H Eos # (Auto) 0.37 Baso # (Auto) 0.03 Immature Gran # (Auto) 0.06 H Sodium 140 Potassium 4.4 Chloride 114 H Carbon Dioxide 19 L Anion Gap 7.0 BUN 19 H Creatinine 1.26 Est Cr Clr Drug Dosing 44.5 Est GFR ( Amer) 61.6 Est GFR (Non-Af Amer) 53.1 BUN/Creatinine Ratio 14.8 Glucose 99 Calcium 8.9 Prostate Specific Ag 49.600 H (1) Benign prostatic hyperplasia Lower urinary tract symptom detail: urinary frequency Lower urinary tract symptom presence: symptoms present Qualified Code(s): N40.1 - Benign prostatic hyperplasia with lower urinary tract symptoms; R35.0 - Frequency of micturition
--- NOTE | 2020-03-21 17:16 | Discharge Summary ---
Date of Service March 21, 2020 Admission HPI Per Admitting Provider Patient is an 80-year-old male, with CAD s/p stent placement, history of arrhythmia, status post pacemaker placement in [place] (Dr. Lynn), HTN, HLD, hx of CVA who usually follows with primary care doctor, Dr. Bernstein in [place], [place] and now presents with urinary frequency and dysuria. Patient states that he has been in [place] since May, he resides with his son Melvin Montes. Patient reports that he did not have any medical issues for a long time, until now. Patient reports that he had nausea and vomiting since Sunday (4 days ago), on Sunday he noticed increased urinary frequency, and severe discomfort with urination. He also reports poor appetite. In the ED patient was found to have elevated creatinine at 2.0. Bladder scan did not show urinary retention. Urine showed bacteria, and mucus, which was concerning for dehydration and UTI. Patient's urine is red-colored however he recently started to use AZO, which he obtained as outpatient. Patient denies any fevers, chills, chest pain, shortness of breath, abdominal pain. CT of the abdomen pelvis was also obtained in ED, which notes renal cysts and right renal mass. It is unclear how chronic these conditions are as patient follows with his healthcare providers in [place]. Patient reports that his PCP Dr. Damon Bernstein, [address] [facility], . In the ED patient was given IV fluids and started on ceftriaxone. Patient was seen in PCP [facility] clinic, by Dr. Gibson in 2009, BMP from 2009, shows creatinine of 1.3 and GFR 58, BUN 22. Admission Exam Per Admitting Provider Constitutional: WD/WN, vitals as above Eyes: PERRL, conjunctivae normal, anicteric sclerae ENMT: external ear and nose normal, oropharynx normal Neck: normal visual inspection Respiratory: normal respiratory effort, lungs clear to auscultation Auscultation: no crackles, no rhonchi and no wheezes Cardiovascular: RRR, no murmur, no edema Chest (Breasts): Chest: normal inspection of chest Gastrointestinal (Abdomen): Inspection/Auscultation: abdomen normal to inspection and normal bowel sounds; abdomen not distended Percussion/Palpation: abdomen soft; abdomen nontender, no guarding and abdomen not rigid Musculoskeletal: no cyanosis or clubbing, extremities motor strength 5/5 Skin: no rashes, warm and dry Neurologic: PERRL, EOMI, accommodation nl, no face palsy, no dysarthria moves all extremities Psychiatric: A+Ox3, euthymic affect Genitourinary: no CVA tenderness Lymphatic: no lymphedema Principal Diagnosis Acute prostatitis Acute kidney injury, resolved Discharge Exam General- oriented x 3, not in distress, speaks in sentences with no effort or accessory muscle use Eyes- anicteric Neck- no JVD Lungs- clear breath sounds bilaterally, no crackles, no wheezing Heart- normal rate, regular rhythm; no murmurs Abdomen- normal bowel sounds, nondistended, soft, nontender Extremities- no pretibial edema, no calf tenderness Neuro- alert, oriented x 3; no gross focal neurologic deficits Skin- warm & dry Discharge Data Allergies Allergy/AdvReac Type Severity Reaction Status Date / Time No Known Allergies Allergy Verified 03/18/20 18:44 Consultations 03/18/20 18:42 ED Decision to Admit Stat 03/18/20 20:00 Consult Health Information Management Stat 03/19/20 12:45 Consult Urology Routine Ordered Studies 03/18/20 15:10 CT abd pelvis wo con Stat FINDINGS: Lower chest: There is pulmonary emphysema. There is mild lower lobe cylindrical bronchiectasis. There is subpleural reticulation. There is a small hiatal hernia. Liver: There are hypodense hepatic lesions which approaches water attenuation. The largest measures 25 mm. These likely represent cysts. Gallbladder: Surgically absent Spleen: The spleen is lobulated. No focal masses are visualized in this nonc ontrast study Pancreas: Unremarkable. Adrenal glands: Unremarkable. Kidneys: There are multiple large bilateral renal cysts measuring up to 12 cm in diameter on the left and 5 cm on the right. In addition there is a probable 9 mm hyperdense cyst on the left. There are thin mural calcifications within the lower pole right renal cyst. There is an indeterminate 13 mm right renal mass, possibly solid. Dedicated renal imaging could be obtained in follow-up for further evaluation. There is no hydronephrosis. No ureteral calculi are visualized. Bowel: There are no transition zones to indicate bowel obstruction. There is no evidence of acute diverticulitis. There is no evidence of acute appendicitis. Peritoneum: There is no intraperitoneal free air or abdominal ascites. Vasculature: The abdominal aorta is normal in course and caliber. Adenopathy: There is a borderline enlarged right perivesical lymph node measuring 11 mm in diameter. Pelvic viscera: The prostate is enlarged measuring 6.5 cm in diameter. There is bladder wall thickening. While this may simply be secondary to chronic bladder outlet obstruction, a cystitis cannot be excluded. There is a penile calcification. This is extra urethral. Skeletal structures: The bones are osteopenic. There are old T12 and L1 compression deformities. IMPRESSION: 1. No evidence of bowel obstruction. No evidence of free air 2. Diverticulosis. No evidence of acute diverticulitis. No evidence of acute appendicitis 3. Large bilateral renal cysts. Indeterminate 13 mm right renal mass. Dedicated renal imaging could be obtained in follow-up as deemed clinically appropriate 4. No renal, ureteral, or bladder calculi identified 5. Moderate to marked prostatomegaly. Bladder wall thickening. 6. Borderline enlarged 11 mm right perivesical lymph node 03/20/20 19:18 US venous doppler UE LT Urgent FINDINGS: No intraluminal thrombus was visualized. The internal jugular, subclavian, axillary, cephalic, brachial, basilic, radial, and ulnar veins were patent. IMPRESSION: No evidence of left upper extremity DVT. Hospital Course (1) BLAKE (acute kidney injury): Acute prostatitis Per admitting service notes Patient presents with clear symptoms of UTI, urinary frequency and discomfort with urination Started Using AZO which helped somewhat with symptoms WBC mildly elevated at 12 K UA with bacteria and mucus Started on empiric ceftriaxone Patient significantly improved with IV ceftriaxone Urine culture negative Received ceftriaxone IV x3 days PSA decreased from 64,000 from 49,000 Symptoms likely secondary to prostatitis by urologist Dr. Meredith Recommend to complete 28-day course of antibiotics Will prescribe ciprofloxacin 500 mg twice daily x25 days ff up with PCP in 1 week (please perform EKG on ff up with PCP, and repeat 1-2 weeks thereafter to monitor for prolonged QTc; monitor BMP as well while on Cipro) Follow-up with urologist Dr. Meredith in 1 to 2 weeks Bilateral renal cysts, prostate enlargement CT abdomen pelvis: 1. No evidence of bowel obstruction. No evidence of free air 2. Diverticulosis. No evidence of acute diverticulitis. No evidence of acute appendicitis 3. Large bilateral renal cysts. Indeterminate 13 mm right renal mass. Dedicated renal imaging could be obtained in follow-up as deemed clinically appropriate 4. No renal, ureteral, or bladder calculi identified 5. Moderate to marked prostatomegaly. Bladder wall thickening. 6. Borderline enlarged 11 mm right perivesical lymph node --Finasteride started --Follow-up with urologist Dr. Meredith in 1 to 2 weeks, will need repeat imaging studies Acute kidney injury Per Admitting service notes Cr elevated at 2.0 however no known baseline Cr at this time as pt resides in [place] and follows with his health care providers there Cr 1.3 in 2009 per our records possibly d/t dehydration, poor appetite and hx of vomiting During IV fluids, lisinopril held Creatinine improved, 1.21 on discharge day Repeat BMP on follow-up with PCP in 1 week (2) Benign prostatic hyperplasia: Finasteride started Continue usual tamsulosin Follow-up with urologist plan #1 (3) HTN (hypertension) with goal to be determined: Resume lisinopril (4) HLD (hyperlipidemia): cont. home statin Disposition Discharge to home Follow-up with PCP in 1 week, will establish with PCP Follow-up with larissa Cast urologist t Dr. Meredith in 1- 2 weeks Total Time Total Time Spent Total Time Spent (In Minutes): 50 minutes Discharge Plan Discharge Items Patient Disposition: Home - Self-Care Reason For Visit: BLAKE, UTI Discharge Diagnosis: ACUTE PROSTATITIS Activity: Resume your previous activity Non-emergency contact: Primary Care Provider Call non-emergency contact if: you have any medication questions, your symptoms worsen, your pain is not controlled, your pain is worsening, your pain is unusual for you, your pain is concerning for you and you have a fever Follow-up/Referrals: Good Meredith MD [Physician] - PCP,NO [Primary Care Provider] - Diet: Heart Healthy Addtl Attending Provider Instructions: Please refer to your new medication list and follow instructions carefully New medications include: Ciprofloxacin-antibiotic for acute prostatitis Finasteride-treatment of enlarged prostate Culturelle-probiotic to prevent diarrhea associated with prolonged antibiotic use Drink plenty of water daily. Call primary care physician or return to the ER immediately if with worsening of symptoms including, Difficulty or pain with urination, abdominal pain, nausea or vomiting, fevers or chills, Diarrhea, weakness. Follow-up with a primary care physician within 1 week. [facility] will be calling you soon for the appointment schedule. Follow-up with [facility] urologist Dr. Meredith in 2 weeks. Please call his office for an appointment. Contact information noted above Pending Studies at Discharge: Yes Studies:: Repeat blood work (basic metabolic profile) on follow-up with primary care physician this week. Repeat CAT scan of the abdomen and pelvis to reevaluate kidney cysts patient-to be ordered by urologist. Stand-Alone Forms: My [facility], Smoking Cessation Medications and DC Order Prescriptions: New finasteride [Proscar] 5 mg Tablet 5 mg PO QAM Qty: 30 RF: 2 ciprofloxacin HCl 500 mg tablet 500 mg PO Q12H Qty: 50 RF: 0 Culturelle 10 billion cell capsule 1 cap PO DAILY Qty: 30 RF: 1 Continued pravastatin 40 mg tablet 40 mg PO HS RF: 0 alprazolam 0.5 mg tablet 0.5 mg PO TID PRN (Reason: Anxiety) RF: 0 tamsulosin 0.4 mg capsule 0.8 mg PO HS RF: 0 trazodone 100 mg tablet 100 mg PO HS RF: 0 lisinopril 2.5 mg tablet 2.5 mg PO QPM RF: 0 Discharge Orders: Discharge Order (Routine); Ordered 03/21/20 Ordered By: Kyle Montero Admission Data Admit Date/Time: 03/19/20 21:58 Attending Provider: Kyle Montero Admit Provider: Kyle Montero Primary Care Provider: PCP,NO Other Providers: Dane Cota ; Good Meredith Other Interventions: Discharge Summary Assessment (RN) Last Done: 03/21/20 16:36
[2020-03-21] MEDS ORDERED: CIPROFLOXACIN 500 MG TAB PO STA (17:23)
--- NOTE | 2020-04-05 06:54 | Coding Query ---
A supporting diagnosis is required for the test/procedure performed on this patient in order for us to be reimbursed by the patient's insurance. Please provide a supporting diagnosis for the following test/procedure listed below next to the test name along with your signature. *If there is no additional diagnosis for this patient that would support the following test/procedure please document that below next to the test/procedure. Test(s)/Procedure(s) that require a supporting diagnosis: US Venous Doppler UE LT DIAGNOSIS:__Left Upper Extremity Edema Provider Signature: Date: Thank you Renetta Blandon Health Information Management Once completed, please kindly fax back to [phone] For questions please call [phone] JERARDO
== END 2020-03-21 18:16 | disposition home or self-care (01) ==
LOC: 2N 14:06 → ED 14:06 → SUATTDRO 19:55 → 2N 22:36

== ENCOUNTER 2022-01-12 23:54 | Observation (INO) ==
[2022-01-13] MEDS ORDERED: SODIUM CHLORIDE 0.9% 1000ML 1,000 ML IV SCH (00:15)
--- NOTE | 2022-01-13 00:19 | Emergency Department Note ---
Impression & Plan Alteration in vision ADMIT ED Provider Note HPI: The patient is an 81-year-old male with a history of CVA, pacemaker, who presents the emergency department with a chief complaint of acute visual change. Patient states that approximately 1.5 hours prior to arrival to the ED he was using his phone when his vision became acutely blurry and he can no longer use his phone. He states this occurred in both of his eyes. Patient cannot operate his phone and therefore walked to his family member's house and then was brought to the ED for further assessment. Patient states he does have a history of previous TIAs and stroke, states he previously did receive lysis about 8 years ago for a stroke. On arrival here to the ED the patient does not have any obvious focal deficits but states that his vision is obscured, ambulates all of his extremities spontaneously and otherwise is in no acute distress on my initial evaluation. Patient is hemodynamically stable on arrival. ROS: -Neuro: Acute visual change *10 point review systems was conducted and is otherwise negative unless stated above *Outpatient medications and allergy history reviewed PE: General: Alert HEENT: Normocephalic, trachea midline Eyes: Extraocular eye movement is intact, no scleral erythema, pupils are equal and reactive bilaterally Pulmonary: Clear to auscultation bilaterally, no wheezing Cardio: Regular rate and rhythm GI: Abdomen is soft, nontender : No suprapubic tenderness MSK: No evidence of trauma or malformation of the extremities, no edema Skin: No evidence of rash Neuro: Alert, equal bilateral surgery aid strength, symmetrical facial movements are appreciated, there is no drift of the upper extremities or lower extremities bilaterally with testing against gravity, there is no ataxia on [id number] testing bilaterally Psychiatric: Cooperative quality assurance monitor: - An order was placed for continuous cardiac monitoring - Patient was noted to be in sinus rhythm with a rate of 80 EKG: Rate: 99 Rhythm: Normal sinus rhythm Intervals: QRS 126 ms, otherwise within normal limits ST changes: No ST elevation Time: 0006 CTA NECK: Negative CT angiogram of the neck. No comparisons. Bilateral thyroid nodules. Advanced centrilobular emphysematous changes. Moderate disc degeneration at C6- 7. Dental caries with periapical lucency about tooth #13 concerning for periapical abscess. Findings concerning for esophagitis. Radiologist: Nayeli Zamora MD Study ready at 00:49 and initial results transmitted at 00:53 Communications: Clear Time Type Notes 01/13/22 01:[address] [facility], called Dr Hearn on 01/13 01:01 (- 04:00) CTA HEAD: Calcified atherosclerotic disease throughout the cavernous portion of the bilateral internal carotid arteries with no severe stenosis, occlusion or aneurysm. Radiologist: Lu Nettles MD Study ready at 01:44 and initial results transmitted at 01:54 Communications: Clear Time Type Notes 01/13/22 01:[address] chirag, called Dr Ye 01/13 01:56 (- 04:00) CT HEAD: No evidence of acute intracranial pathology. Remote ischemic injury of the left occipital lobe with encephalomalacia and gliosis. Mild nonspecific white matter changes. Bilateral lens replacements. Chronic ethmoid sinusitis. No comparisons. Radiologist: Nayeli Zamora MD Study ready at 00:34 and initial results transmitted at 00:42 Communications: Clear Time Type Notes 01/13/22 00:[address] chirag, called Dr. Ye on 01/13 00:50 (- 04:00) NIH STROKE SCALE: 1A: Level of consciousness Alert; keenly responsive 0 1B: Ask month and age Both questions right 0 1C: 'Blink eyes' & 'squeeze hands' Performs both tasks 0 2: Horizontal extraocular movements Normal 0 3: Visual michael Subjective visual changes bilaterally 1 4: Facial palsy Normal symmetry 0 5A: Left arm motor drift No drift for 10 seconds 0 5B: Right arm motor drift No drift for 10 seconds 0 6A: Left leg motor drift No drift for 5 seconds 0 6B: Right leg motor drift No drift for 5 seconds 0 7: Limb Ataxia No ataxia 0 8: Sensation Normal; no sensory loss 0 9: Language/aphasia Normal; no aphasia 0 10: Dysarthria Normal 0 11: Extinction/inattention No abnormality 0 TOTAL NIH SCORE = 1 Medical Decision Making: Patient presented to the emergency department with acute visual change about an hour and a half prior to arrival here to the ED. He does not have any focal deficits on my examination aside from his complaint of diminished vision bilaterally without a specific pattern. Patient does not display any ataxia on [id number] testing, he does not have any focal weakness of the extremities, he does have symmetrical facial movements, he otherwise appears well and is hemodynamically stable here in the ED. Shortly after the patient's presentation, stroke alert activation was initiated, CT scan of the head as well as CT angiography of the head and neck did not show any evidence of acute stroke, no evidence of large vessel occlusion. Patient's lab work is otherwise generally unremarkable, he is hemodynamically stable here in the ED and otherwise appears well. Lab work is without any emergent findings, no critical electrolyte abnormalities are noted, hemoglobin is stable, no leukocytosis. EKG shows sinus rhythm. I did discuss the patient's presentation with on-call stroke neurology at [facility], Dr. Wills. We discussed the patient's presentation and acute visual change, it is not focal in nature to one side or the other, there is no partial visual field cut, patient is very adamant that his visual michael are blurry bilaterally and this did seem to happen acutely. Patient does have a history of cataracts and bilateral lens replacements, he has had some visual issues previously, he also mentions to me later that he was not wearing his reading glasses at the time and he did not initially realize this. He thinks this might of been playing a role in his symptoms. He is stating now that without his glasses on his vision is worse than it usually would be, however it is improved from previous. Patient does have a history of previous CVA with areas of old infarct in the left occipital lobe with encephalomalacia, I do believe giving him lysis at this time would be high risk for intracranial bleeding. Diagnosis of stroke is in question. On my discussion with Dr. Wills she also has hesitation to diagnose this as a stroke and believes the patient to be high risk for lysis and complic ations of hemorrhagic conversion given his age and previous strokes with areas of old infarct and encephalomalacia on CT. Therefore thrombolytics were not given. I did discuss all the above with the patient and his family member at the bedside, patient did express an agreement understanding. Patient was given a dose of aspirin in the ED, on my reassessment patient tells me that his vision is improving from presentation. I do believe given his acuity of visual change he should be admitted to discuss the possibility of MRI imaging and observation. He does have a pacemaker therefore unclear whether or not he would be a candidate for an MRI of the brain. He will be admitted for observation and neurology consultation. Patient is in agreement to this, [facility] hospitalist service was consulted for admission and the patient was admitted in stable condition for further care. Diagnosis: 1. Acute visual change Disposition: ADMIT Maurizio Ye DO Emergency Medicine Past Med/Surg History Medical History BLAKE (acute kidney injury) Anxiety BPH (benign prostatic hyperplasia) CAD (coronary artery disease) CVA (cerebral vascular accident) Elevated prostate specific antigen (PSA) HLD (hyperlipidemia) HTN (hypertension) with goal to be determined Pacemaker Prostatitis Renal cyst Renal lesion Surgical History Status post biventricular pacemaker Family History Father Rheumatic fever Denies family history of Colon cancer Ovarian cancer Prostate cancer Myocardial infarction Breast cancer Social History Smoking Status: Former smoker Tobacco Type: Cigarettes Second Hand Exposure: No; Hx Alcohol Use: Yes Alcohol type: beer Hx Substance Use: No Preferred Language: Portuguese Communication Ability: Effective Visual Impairment: No Limitations Hearing Ability: Normal Police Commissioner Required: No Beliefs That Will Affect Care: None Current Living Situation: Alone current occupational status: retired Feels Safe at Home: Yes Childhood Exposure to Second-Hand Smoke: No Dental Care, Regularly: Yes Physical Activity Frequency: Does not Exercise Seatbelt Use: always Sunscreen Use: No Assistive Devices: Glasses Allergies Allergies Allergy/AdvReac Type Severity Reaction Status Date / Time trimethoprim Allergy Unknown Verified 10/18/21 11:09 bupropion AdvReac Severe shortness Verified 10/18/21 11:09 of breath Home Meds Previous Rx's Medication Instructions Recorded aspirin 81 mg tablet,delayed 81 mg PO DAILY #30 tabs 07/19/21 release (Adult Low Dose Aspirin) alprazolam 0.5 mg tablet 0.5 mg PO TID PRN Anxiety #90 tabs 10/10/21 lisinopril 2.5 mg tablet 2.5 mg PO QPM #90 tabs 10/10/21 pravastatin 40 mg tablet 40 mg PO HS #90 tabs 10/10/21 tamsulosin 0.4 mg capsule 0.8 mg PO HS #180 caps 10/10/21 trazodone 100 mg tablet 100 mg PO HS #90 tabs 10/10/21 zolpidem 10 mg tablet 10 mg PO HS #30 tabs 10/10/21 ipratropium bromide 21 mcg (0.03 2 spray intranasal TID #30 mL 01/10/22 %) nasal spray Results & Data (ED) Vital Signs Vital Signs - 24 hr 01/12/22 23:58 01/13/22 00:33 01/13/22 01:09 Temperature 36.3 C L Temperature Source Temporal Artery Scan Pulse Rate 109 H 83 Pulse Rate [Apical] 87 Pulse Rate from SpO2 Sensor Pulse Rhythm Regular Pulse Strength Normal Respiratory Rate 18 22 21 Respiratory Effort / Characteristics Non-Labored Spontaneous Non-Labored Spontaneous Respiratory Depth Normal Normal Blood Pressure 136/94 107/69 Blood Pressure [Right Arm] 142/96 H Blood Pressure Mean 108 81 Blood Pressure Mean [Right Arm] 111 Blood Pressure Position Sitting Pulse Oximetry 97 96 97 Oxygen Delivery Method Room Air Room Air Sepsis Recent Fever Within 48 Hours No Sepsis New/Unexplained Change in Mental Status N/A Sepsis Action Taken by Nursing No Action Required 01/13/22 01:30 01/13/22 02:10 Temperature Temperature Source Pulse Rate 85 Pulse Rate [Apical] Pulse Rate from SpO2 Sensor 90 Pulse Rhythm Pulse Strength Respiratory Rate 22 Respiratory Effort / Characteristics Respiratory Depth Blood Pressure 129/89 Blood Pressure [Right Arm] Blood Pressure Mean 102 Blood Pressure Mean [Right Arm] Blood Pressure Position Pulse Oximetry 94 Oxygen Delivery Method Room Air Sepsis Recent Fever Within 48 Hours Sepsis New/Unexplained Change in Mental Status Sepsis Action Taken by Nursing Laboratory Data Result diagrams: 01/13/22 00:15 01/13/22 00:15 Lab Results 01/13/22 01/13/22 01/13/22 Range/Units 00:07 00:15 00:15 WBC 9.33 (4.8-10.8) K/ul RBC 5.12 (4.63-6.08) M/uL Hgb 16.7 (14.0-18.0) g/dl POC Hgb (14.0-18.0) g/dl Hct 47.6 (40.1-51.0) % POC Hct (42-52) % MCV 93.0 (80.0-100.0) fL MCH 32.6 (25.0-34.0) pg MCHC 35.1 (32.0-36.0) g/dL RDW Std Deviation 45.4 (36.4-46.3) fL RDW Coeff of Yang 13.2 (11.5-14.5) % Plt Count 180 (130-400) K/uL MPV 9.2 L (9.4-12.4) fL Immature Gran % (Auto) 0.4 % Neut % (Auto) 65.6 % Lymph % (Auto) 18.6 % Kemper % (Auto) 10.3 % Eos % (Auto) 4.6 % Baso % (Auto) 0.5 % Neut # (Auto) 6.11 (1.4-6.5) K/uL Lymph # (Auto) 1.74 (1.2-3.4) K/uL Kemper # (Auto) 0.96 H (0.24-0.82) K/uL Eos # (Auto) 0.43 (0-0.50) K/uL Baso # (Auto) 0.05 (0-0.2) K/uL Immature Gran # (Auto) 0.04 H (0.00-0.02) K/uL PT (9.0-12.0) Seconds INR (0.9-1.1) APTT (21.0-31.0) Seconds PTT Ratio POC Sodium (135-144) mmol/L Sodium (136-145) mmol/L POC Potassium (3.3-5.0) mmol/L Potassium (3.5-5.1) mmol/L POC Chloride (101-112) mmol/L Chloride (98-107) mmol/L Carbon Dioxide (21-32) mmol/L POC Total CO2 (24-31) mmol/L Anion Gap (3-11) POC Anion Gap (16-25) mmol/L POC BUN (7-18) mg/dl BUN (6-23) mg/dl Creatinine (0.6-1.4) mg/dl POC Creatinine (0.6-1.3) mg/dl Est Cr Clr Drug Dosing ml/min Est GFR ( Amer) ml/min Est GFR (Non-Af Amer) ml/min BUN/Creatinine Ratio (10-20) Glucose (70-99(Fasting)) mg/dl POC Glucose 94 (70-99) mg/dl POC Glucose (other) (70-99) mg/dl Calcium (8.5-10.1) mg/dl POC Ioniz Calcium Cira (1.12-1.32) mmol/l Magnesium (1.7-2.4) mg/dl Total Bilirubin (0.2-1.0) mg/dl AST (13-39) U/L ALT (7-52) U/L Alkaline Phosphatase (34-104) U/L Troponin I High Sens (0-20) pg/ml Total Protein (6.0-8.3) gm/dl Albumin (3.4-5.0) gm/dl Globulin (2.5-4.0) gm/dl Albumin/Globulin Ratio (0.9-2) SARS-CoV-2, RNA, NAAT (NEGATIVE) Blood Type O Negative Antibody Screen NEGATIVE 01/13/22 01/13/22 01/13/22 Range/Units 00:15 00:15 00:23 WBC (4.8-10.8) K/ul RBC (4.63-6.08) M/uL Hgb (14.0-18.0) g/dl POC Hgb 17.0 (14.0-18.0) g/dl Hct (40.1-51.0) % POC Hct 50 (42-52) % MCV (80.0-100.0) fL MCH (25.0-34.0) pg MCHC (32.0-36.0) g/dL RDW Std Deviation (36.4-46.3) fL RDW Coeff of Yang (11.5-14.5) % Plt Count (130-400) K/uL MPV (9.4-12.4) fL Immature Gran % (Auto) % Neut % (Auto) % Lymph % (Auto) % Kemper % (Auto) % Eos % (Auto) % Baso % (Auto) % Neut # (Auto) (1.4-6.5) K/uL Lymph # (Auto) (1.2-3.4) K/uL Kemper # (Auto) (0.24-0.82) K/uL Eos # (Auto) (0-0.50) K/uL Baso # (Auto) (0-0.2) K/uL Immature Gran # (Auto) (0.00-0.02) K/uL PT 10.9 (9.0-12.0) Seconds INR 1.0 (0.9-1.1) APTT 26.0 (21.0-31.0) Seconds PTT Ratio 0.9 POC Sodium 141 (135-144) mmol/L Sodium 137 (136-145) mmol/L POC Potassium 3.9 (3.3-5.0) mmol/L Potassium 3.9 (3.5-5.1) mmol/L POC Chloride 108 (101-112) mmol/L Chloride 108 H (98-107) mmol/L Carbon Dioxide 21 (21-32) mmol/L POC Total CO2 20 L (24-31) mmol/L Anion Gap 8 (3-11) POC Anion Gap 18.0 (16-25) mmol/L POC BUN 24 H (7-18) mg/dl BUN 23 (6-23) mg/dl Creatinine 1.69 H (0.6-1.4) mg/dl POC Creatinine 1.8 H (0.6-1.3) mg/dl Est Cr Clr Drug Dosing 31.5 ml/min Est GFR ( Amer) 42.9 ml/min Est GFR (Non-Af Amer) 37.0 ml/min BUN/Creatinine Ratio 13.6 (10-20) Glucose 95 (70-99(Fasting)) mg/dl POC Glucose (70-99) mg/dl POC Glucose (other) 103 H (70-99) mg/dl Calcium 9.1 (8.5-10.1) mg/dl POC Ioniz Calcium Cira 1.19 (1.12-1.32) mmol/l Magnesium 2.0 (1.7-2.4) mg/dl Total Bilirubin 0.6 (0.2-1.0) mg/dl AST 22 (13-39) U/L ALT 19 (7-52) U/L Alkaline Phosphatase 71 (34-104) U/L Troponin I High Sens 11.2 (0-20) pg/ml Total Protein 8.2 (6.0-8.3) gm/dl Albumin 4.0 (3.4-5.0) gm/dl Globulin 4.2 H (2.5-4.0) gm/dl Albumin/Globulin Ratio 1.0 (0.9-2) SARS-CoV-2, RNA, NAAT (NEGATIVE) Blood Type Antibody Screen 01/13/22 Range/Units 01:37 WBC (4.8-10.8) K/ul RBC (4.63-6.08) M/uL Hgb (14.0-18.0) g/dl POC Hgb (14.0-18.0) g/dl Hct (40.1-51.0) % POC Hct (42-52) % MCV (80.0-100.0) fL MCH (25.0-34.0) pg MCHC (32.0-36.0) g/dL RDW Std Deviation (36.4-46.3) fL RDW Coeff of Yang (11.5-14.5) % Plt Count (130-400) K/uL MPV (9.4-12.4) fL Immature Gran % (Auto) % Neut % (Auto) % Lymph % (Auto) % Kemper % (Auto) % Eos % (Auto) % Baso % (Auto) % Neut # (Auto) (1.4-6.5) K/uL Lymph # (Auto) (1.2-3.4) K/uL Kemper # (Auto) (0.24-0.82) K/uL Eos # (Auto) (0-0.50) K/uL Baso # (Auto) (0-0.2) K/uL Immature Gran # (Auto) (0.00-0.02) K/uL PT (9.0-12.0) Seconds INR (0.9-1.1) APTT (21.0-31.0) Seconds PTT Ratio POC Sodium (135-144) mmol/L Sodium (136-145) mmol/L POC Potassium (3.3-5.0) mmol/L Potassium (3.5-5.1) mmol/L POC Chloride (101-112) mmol/L Chloride (98-107) mmol/L Carbon Dioxide (21-32) mmol/L POC Total CO2 (24-31) mmol/L Anion Gap (3-11) POC Anion Gap (16-25) mmol/L POC BUN (7-18) mg/dl BUN (6-23) mg/dl Creatinine (0.6-1.4) mg/dl POC Creatinine (0.6-1.3) mg/dl Est Cr Clr Drug Dosing ml/min Est GFR ( Amer) ml/min Est GFR (Non-Af Amer) ml/min BUN/Creatinine Ratio (10-20) Glucose (70-99(Fasting)) mg/dl POC Glucose (70-99) mg/dl POC Glucose (other) (70-99) mg/dl Calcium (8.5-10.1) mg/dl POC Ioniz Calcium Cira (1.12-1.32) mmol/l Magnesium (1.7-2.4) mg/dl Total Bilirubin (0.2-1.0) mg/dl AST (13-39) U/L ALT (7-52) U/L Alkaline Phosphatase (34-104) U/L Troponin I High Sens (0-20) pg/ml Total Protein (6.0-8.3) gm/dl Albumin (3.4-5.0) gm/dl Globulin (2.5-4.0) gm/dl Albumin/Globulin Ratio (0.9-2) SARS-CoV-2, RNA, NAAT NEGATIVE (NEGATIVE) Blood Type Antibody Screen Administered Medications Sodium Chloride (Nss 1000ml) 1,000 mls @ 50 mls/hr IV .Q20H EDY Stop: 02/12/22 00:14 Last Admin: 01/13/22 02:06 Dose: 50 mls/hr Documented By: RD Discontinued Medications Aspirin (Aspirin Chew 324 Mg) 324 mg PO NOW STA Stop: 01/13/22 01:29 Last Admin: 01/13/22 01:40 Dose: Not Given Documented By: CANDIS Ioversol (Optiray 300 500ml) 116 ml IV ONCE ONE Stop: 01/13/22 00:40 Last Admin: 01/13/22 00:40 Dose: 116 ml Documented By: MC Discharge Plan Visit Data Chief Complaint: Stroke/CVA Symptoms Stated Complaint: CAN'T SEE ALL OF SUDDEN,HX OF STROKES ED Provider: Maurizio Ye Discharge Problem: Alteration in vision Patient Disposition: Admitted As Inpatient Forms Stand Alone Forms: [facility] Prescriptions Prescriptions: No Action trazodone 100 mg tablet 100 mg PO HS Qty: 90 1RF pravastatin 40 mg tablet 40 mg PO HS Qty: 90 1RF tamsulosin 0.4 mg capsule 0.8 mg PO HS Qty: 180 1RF lisinopril 2.5 mg tablet 2.5 mg PO QPM Qty: 90 1RF zolpidem 10 mg tablet 10 mg PO HS Qty: 30 2RF alprazolam 0.5 mg tablet 0.5 mg PO TID PRN (Reason: Anxiety) Qty: 90 2RF ipratropium bromide 21 mcg (0.03 %) spray,non-aerosol 2 spray intranasal TID Qty: 30 2RF Rx Instructions: administer into each nostril aspirin [Adult Low Dose Aspirin] 81 mg tablet,delayed release (DR/EC) 81 mg PO DAILY Qty: 30 2RF Referrals Referrals: Nasir Bai III, CRNP [Primary Care Provider] -
[2022-01-13 00:32] LABS: Basophils # (auto) 0.05 K/uL (0-0.2); Basophils % (auto) 0.5 %; Eosinophils # (auto) 0.43 K/uL (0-0.50); Eosinophils % (auto) 4.6 %; Hematocrit (blood only) 47.6 % (40.1-51.0); Hemoglobin 16.7 g/dl (14.0-18.0); Immature Granulocytes # (auto) 0.04 K/uL (0.00-0.02); Immature Granulocytes % (auto) 0.4 %; Lymphocytes # (auto) 1.74 K/uL (1.2-3.4); Lymphocytes % (auto) 18.6 %; Mean Corpuscular Hemoglobin 32.6 pg (25.0-34.0); Mean Corpuscular Hgb Conc 35.1 g/dL (32.0-36.0); Mean Platelet Volume 9.2 fL (9.4-12.4); Monocytes # (auto) 0.96 K/uL (0.24-0.82); Monocytes % (auto) 10.3 %; Neutrophils # (auto) 6.11 K/uL (1.4-6.5); Neutrophils % (auto) 65.6 %; Platelet Count 180 K/uL (130-400); RDW Coefficient of Variation 13.2 % (11.5-14.5); RDW Standard Deviation 45.4 fL (36.4-46.3); Red Blood Count 5.12 M/uL (4.63-6.08); White Blood Count 9.33 K/ul (4.8-10.8)
[2022-01-13 00:36] LABS: iSTAT Creatinine 1.8 mg/dl (0.6-1.3); iSTAT Ionized Calcium 1.19 mmol/l (1.12-1.32); iSTAT Potassium 3.9 mmol/L (3.3-5.0)
[2022-01-13] MEDS ORDERED: OPTIRAY 300 500mL IV ONE (00:39)
[2022-01-13 00:55] LABS: Partial Thromboplastin Ratio 0.9; Prothrombin Time 10.9 Seconds (9.0-12.0)
[2022-01-13 01:00] LABS: BUN Creatinine Ratio 13.6 (10-20); Bilirubin,Total 0.6 mg/dl (0.2-1.0); Calcium 9.1 mg/dl (8.5-10.1); Creatinine Clr Calc Pharmacy 31.5 ml/min; Est GFR (African American) 42.9 ml/min; Globulin 4.2 gm/dl (2.5-4.0); Potassium 3.9 mmol/L (3.5-5.1); Total Protein 8.2 gm/dl (6.0-8.3)
[2022-01-13 01:03] LABS: Troponin I High Sensitivity 11.2 pg/ml (0-20)
[2022-01-13] MEDS ORDERED: ASPIRIN CHEW 324 MG PO STA (01:28)
--- NOTE | 2022-01-13 01:50 | History & Physical Report ---
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 Bilateral Visual Acuity Changes Patient with reported history of prior CVA related to arrhythmia (per patient) and multiple TIAs when he lived in [place] 20-30 on day of admission, reported acute onset, painless visual acuity changes in both eyes without other peripheral symptoms CTA head/neck (STAT-Rad) without any acute insults DDX: CVA (e.g., retrochiasmal, bilateral CRAO from embolism), complicated migraine, seizure, conversion, RX side effect (tamsulosin); lower suspicion for orthostasis; given good function from pacemaker reported, low suspicion for failure-related Check MRI: Patient has pacemaker, reportedly MRI-safe Check lipid panel, A1c Check echo Continue neuro-checks Initiate aspirin, continue statin (may wish to switch to high intensity) Consult neurology: appreciate diagnostic expertise May wish to consider ophthalmology consultation pending w/u (2) HTN (hypertension) with goal to be determined: Plan: HTN, Suspected CAD Continue metoprolol, lisinopril Should consider increasing potency of statin (3) Status post biventricular pacemaker: Plan: s/p Dual Chamber Pacemaker - Exactly reason for placement is unclear - arrhythmia-related when he lived in [place] - Follows with Dr. Barney - if ongoing concerns for possible failure of device, could consider cardiology consultation for interrogation (4) Benign prostatic hyperplasia: Plan: BPH - Hold BPH for ongoing concerns above (5) Anxiety: Plan: RAJ - Patient on both alprazolam (up to t.i.d.) and zolpidem -- attempted weening in past per PCP notes but unfortunately has been unsuccessful - Continue both for now (6) Dental alveolar anomalies: Plan: Dental Abnormalities - CT demonstrating (STAT-rad): "Dental caries with periapical lucency about 2 concerning for periapical abscess." - Patient reports having dental work done approx. 1 month ago and regularly brushing his teeth, no pain; no appreciable findings on exam - Await over-read by [facility] for confirmation and before intervention -- No findings on labs, appearance, or vitals c/w systemic infection; hold on ABX for now - If positive, should consider close f/u with dentistry or possible mobile consult with [facility] Plan Code: DNR/DNI Diet: HH PPX: SCDs Dispo: MS/T Consults: Neurology, PT, OT History of Present Illness Primary Care Provider: Nasir Bai, TIANNA, GENOVEVA This is an 81-year-old male with a history of bilateral lens replacements, cataracts, hypertension, hyperlipidemia, anxiety, renal lesion, coronary artery disease, left bundle branch block status post pacemaker placement, prior CVA (with residual peripheral field deficits in RIGHT eye, temporal sides - per him), chronic bacterial prostatitis who presented to [facility] for evaluation of visual disturbances. Patient says that he was in his normal health up through today. He got his COVID and flu shots at 1630. He was watching TV around 20-30 when he noticed an acute onset change in vision that he describes as "really fog glass with some distortion ", over both of his eyes. He said it does not matter if he is looking at things close or far away, but they all have the same appearance. He did not have his reading glasses on at this time per ED provider. He denies any double vision. He denies any scotoma like appearances. Denies any curtains coming down on either of his eyes. He does think that he developed a right sided temporal headache around this time, but did not think much about it because it was not severe and his vision issues were more concerning to them. He denies any onset of nausea. Unfortunately, since coming to the emergency department, none of his symptoms have improved at all. He says that he would be considered "legally blind "right now if he were to have formal vision assessment. He denies any eye pain. Denies any recent fever, chills, sweats. Denies any numbness or tingling in any of extremitieshe does say that he has had some sensory changes of the bottom of his feet over the last year or so. He denies any issues moving his arms or legs. Denies any dysarthria or aphasia throughout this process. Of note, he does say that in [place] when he was living there, he had 4 TIAs. He said 1 of these was associated with "not being able to understand what I was reading. "He has difficulty remembering the other events. He says that his CVA history is related to prior arrhythmias that he no longer has, thinks to his pacemaker. He says that his heart would intermittently "stop ". He reports following a dentist regularly and just had work done a month ago. He denies pain. Endorses brushing. Medications reviewed and include alprazolam, aspirin, ipratropium nasal spray, lisinopril, pravastatin, tamsulosin, trazodone, zolpidem. Upon arrival in the ED, patient was found to have tachycardia to 109 and mildly low temperature 36.3. Otherwise normal. Labs demonstrated BUN 23/creatinine 1.69 (elevated from 1.49 in 10/2021). Glucose 94. CTA head: "Negative CT angiogram of the head. No comparisons. Left maxillary dental disease with periapical lucency concerning for abscess. "CTA neck: "Negative CTA angiogram of the neck. Bilateral thyroid nodules. Advanced centrilobular emphysematous changes. Dental caries with periapical lucency about 2 concerning for periapical abscess. Findings concerning for esophagitis. "CT head: "No evidence of acute intracranial pathology. Remote ischemic injury of the left occipital lobe with encephalomalacia and gliosis." He was given fluids and aspirin. STROKE ALERT was called - thrombolysis was not recommended. Allergies Allergy/AdvReac Type Severity Reaction Status Date / Time trimethoprim Allergy Unknown Verified 10/18/21 11:09 bupropion AdvReac Severe shortness Verified 10/18/21 11:09 of breath Home Medications Medication Instructions Recorded Confirmed Type alprazolam 0.5 mg tablet 0.5 mg PO TID PRN Anxiety #90 tabs 10/10/21 10/18/21 Rx lisinopril 2.5 mg tablet 2.5 mg PO QPM #90 tabs 10/10/21 10/18/21 Rx tamsulosin 0.4 mg capsule 0.8 mg PO HS #180 caps 10/10/21 10/18/21 Rx trazodone 100 mg tablet 100 mg PO HS #90 tabs 10/10/21 10/18/21 Rx zolpidem 10 mg tablet 10 mg PO HS #30 tabs 10/10/21 10/18/21 Rx ipratropium bromide 21 mcg (0.03 2 spray intranasal TID #30 mL 01/10/22 Rx %) nasal spray atorvastatin 40 mg tablet 40 mg PO DAILY #30 tabs 01/13/22 Rx clopidogrel 75 mg tablet 75 mg PO DAILY #60 tabs 01/13/22 Rx Past Med/Surg History Medical History BLAKE (acute kidney injury) Anxiety BPH (benign prostatic hyperplasia) CAD (coronary artery disease) CVA (cerebral vascular accident) Elevated prostate specific antigen (PSA) HLD (hyperlipidemia) HTN (hypertension) with goal to be determined Pacemaker Prostatitis Renal cyst Renal lesion Surgical History Status post biventricular pacemaker Family History Father Rheumatic fever Denies family history of Colon cancer Ovarian cancer Prostate cancer Myocardial infarction Breast cancer Social History Smoking Status: Former smoker Tobacco Type: Cigarettes Second Hand Exposure: No; Hx Alcohol Use: No Hx Substance Use: No Preferred Language: Setswana Communication Ability: Effective Visual Impairment: No Limitations 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 HEENT: NCAT. - Eyes - Sclera are white, anicteric, and without injection. - Mouth - MMM - Neck - supple, no appreciable JVD Cardiac: Normal rate and regular rhythm; S1 and S2 present with no murmurs, rubs, or gallops. Pulmonary: Good respiratory effort with symmetric expansion of the chest. No use of accessory muscles. Lungs were clear to auscultation bilaterally with no crackles or wheezes. Abdominal: Normoactive bowel sounds. Abdomen was soft, nondistended, and non- tender to palpation. Extremities: Upper and lower extremities are warm and well perfused. No peripheral edema in the lower extremities bilaterally Neuro: - Cranial Nerves: CN I, IX, XIII, and X - not assessed. II - PERRL. Unable to assess visual michael due to visual acuity issues. III/IV/ - EOMs WNL. No nystagmus. V - Facial sensation in tact in all three divisions; jaw opening WNL. VII - Patient is able to smile symmetrically and keep eyes close against resistance. IX - Soft palate raises equally and appropriately while saying "ah." XI - Patient is able to shrug shoulders against resistance. XII - patient is able to stick out tongue and deviate from [id number] appropriately. - Motor: UE - Finger, wrist, elbow, and shoulder strength is 5/5 bilaterally. LE - Hip, knee, and ankle strength is 5/5 bilaterally. - Sensation: UE and LE sensation to light touch is grossly intact bilaterally. - [id number]: WNL b/l. No dysmetria. - [id number]-cm-[id number]; WNL b/l. Psych: Well-developed, well-nourished, appropriately dressed for occasion. Behavior is cooperative and appropriate. Affect is WNL. Insight is appropriate. Results & Data Results & Data ([facility]) Vital Signs (Past 12 Hours) Vital Signs Temp Pulse Pulse Resp BP BP Pulse Ox 01/13/22 01:30 85 22 129/89 94 01/13/22 01:09 83 21 107/69 97 01/13/22 00:33 87 22 142/96 H 96 01/12/22 23:58 36.3 C L 109 H 18 136/94 97 O2 Del Method 01/13/22 01:30 01/13/22 01:09 01/13/22 00:33 Room Air 01/12/22 23:58 Room Air Supervising Physician Co-Signing Physician Notes Attending addendum: I have physically seen this patient, have supervised the medical residents activities, and agree with the H&P unless as otherwise noted. Assessment and Plan: Bilateral vision loss- CT head remote left occipital lobe lesion CTA head neck with multiple dental abscesses MRI brain performed after pacemaker safe mode Check a fasting lipid panel hemoglobin A1c check a complete echocardiogram Neurochecks Continue aspirin Change to high-dose statin Consult neurology CAD/hypertension/dual-chamber pacemaker- Continue metoprolol and lisinopril Remaining orders and notations as noted Resident Activity Tracking Resident Involvement: Resident Care Provided Care Provided: Adult Hospital Medicine (1) Benign prostatic hyperplasia Lower urinary tract symptom detail: urinary frequency Lower urinary tract symptom presence: symptoms present Qualified Code(s): N40.1 - Benign prostatic hyperplasia with lower urinary tract symptoms; R35.0 - Frequency of micturition
[2022-01-13] MEDS ORDERED: ACETAMINOPHEN 325 MG TAB PO PRN (02:45)
[2022-01-13] MEDS ORDERED: ALPRAZolam 0.5 MG TABLET PO STA ×2 (04:37→04:40)
[2022-01-13] MEDS ORDERED: TAMSULOSIN HCL 0.4 MG CAP PO ONE (04:37)
[2022-01-13] MEDS ORDERED: CALCIUM CARBONATE 500 MG CHEWABLE TAB PO ONE (04:38)
[2022-01-13] MEDS ORDERED: PHARMACIST DISCHARGE MED REC CONSULT PRN (04:40)
[2022-01-13] MEDS ORDERED: ALPRAZolam 0.5 MG TABLET PO PRN (04:40)
[2022-01-13] MEDS: FAMOTIDINE 20 MG TAB PO ONE ×3 (05:04→06:41)
[2022-01-13 05:47] LABS: Basophils # (auto) 0.04 K/uL (0-0.2); Basophils % (auto) 0.5 %; Eosinophils # (auto) 0.43 K/uL (0-0.50); Eosinophils % (auto) 5.4 %; Hematocrit (blood only) 46.5 % (40.1-51.0); Hemoglobin 15.9 g/dl (14.0-18.0); Immature Granulocytes # (auto) 0.03 K/uL (0.00-0.02); Immature Granulocytes % (auto) 0.4 %; Lymphocytes # (auto) 1.39 K/uL (1.2-3.4); Lymphocytes % (auto) 17.4 %; Mean Corpuscular Hemoglobin 32.3 pg (25.0-34.0); Mean Corpuscular Hgb Conc 34.2 g/dL (32.0-36.0); Mean Corpuscular Volume 94.5 fL (80.0-100.0); Mean Platelet Volume 9.2 fL (9.4-12.4); Monocytes # (auto) 0.81 K/uL (0.24-0.82); Monocytes % (auto) 10.1 %; Neutrophils # (auto) 5.31 K/uL (1.4-6.5); Neutrophils % (auto) 66.2 %; Platelet Count 173 K/uL (130-400); RDW Coefficient of Variation 13.4 % (11.5-14.5); RDW Standard Deviation 46.5 fL (36.4-46.3); Red Blood Count 4.92 M/uL (4.63-6.08); White Blood Count 8.01 K/ul (4.8-10.8)
[2022-01-13 06:15] LABS: Alanine Aminotransferase 16 U/L (7-52); Albumin Level 3.7 gm/dl (3.4-5.0); Alkaline Phosphatase 65 U/L (34-104); Anion Gap 4 (3-11); Aspartate Aminotransferase 18 U/L (13-39); BUN Creatinine Ratio 14.5 (10-20); Bilirubin,Total 0.4 mg/dl (0.2-1.0); Blood Urea Nitrogen 24 mg/dl (6-23); C Reactive Protein < 0.50 mg/dl (0-0.5); Calcium 8.7 mg/dl (8.5-10.1); Carbon Dioxide 24 mmol/L (21-32); Chloride 108 mmol/L (98-107); Chol HDL Ratio 4.4 (0-5); Cholesterol 142 mg/dl (0-200); Creatinine Clr Calc Pharmacy 32.3 ml/min; Est GFR (African American) 44.1 ml/min; Est GFR (Non-African American) 38.1 ml/min; Globulin 3.7 gm/dl (2.5-4.0); Glucose 117 mg/dl (70-99(Fasting)); HDL Cholesterol 32 mg/dl; LDL Cholesterol Calculated 85 mg/dl; Potassium 4.2 mmol/L (3.5-5.1); Sodium 136 mmol/L (136-145); Total Protein 7.4 gm/dl (6.0-8.3); Triglycerides 125 mg/dl (0-150); VLDL Cholesterol 25 mg/dl (0-30)
[2022-01-13 07:20] LABS: Estimated Average Glucose 114 mg/dl; Hemoglobin A1C 5.6 % (4.5-5.6)
--- NOTE | 2022-01-13 08:16 | CT Scan Report ---
NECK CTA HISTORY: Stroke Like Symptoms TECHNIQUE: Multiaxial CT images of the neck were performed following the intravenous administration o f contrast to evaluate the major cervical vessels. Maximum intensity projection images were also obta ined. All measurements were calculated based on NASCET criteria. A dose lowering technique was utili zed adhering to the principles of ALARA. COMPARISON STUDY: None. FINDINGS: The aortic arch and proximal great vessels are widely patent. There is no significant sten osis, occlusion, or dissection identified within the bilateral common carotid, internal carotid, or v ertebral arteries. Moderate to severe emphysema noted at the lung apices. Partial opacification of th e ethmoid air cells. Mild mucosal thickening within the left maxillary sinus. Postoperative changes n oted within the right maxillary sinus. The mastoid air cells are clear. Old left HIM MANAGER territory infarc t. Subcentimeter thyroid nodules are noted. A left-sided pacemaker is noted. Mild calcified plaque wi thin the bilateral carotid bifurcations. Extensive periodontal disease is noted. Mild circumferential thickening of the visualized esophagus. IMPRESSION: 1. No significant stenosis, occlusion, or dissection identified within the carotid or vertebral arter ies. 2. Additional findings as described above. ACT 112: Negative or not required by law. Electronically signed by: Jaguar Arias M.D. 01/13/2022 8:14 AM
[2022-01-13] MEDS ORDERED: ASPIRIN 81 MG ECTAB PO SCH (09:00)
[2022-01-13] MEDS ORDERED: IPRATROPIUM BROMIDE NASAL SPRAY 0.06% 15ML NAE SCH (09:00)
--- NOTE | 2022-01-13 09:24 | XCELERA ---
[id number]
--- NOTE | 2022-01-13 09:57 | CT Scan Report ---
CT OF THE HEAD WITHOUT CONTRAST CLINICAL HISTORY: Stroke Like Symptoms COMPARISON STUDY: No previous studies for comparison. TECHNIQUE: Helical axial images of the head were obtained without IV contrast. Automated exposure con trol was utilized for the study. A dose lowering technique was utilized adhering to the principles o f ALARA. FINDINGS: No acute intracranial hemorrhage, midline shift or mass effect is present. Ventricular syst em is normal. Basal cisterns are patent. There are no extra-axial collections. 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 White matter hypodensities favo r small vessel disease. There are no findings to suggest acute dural sinus thrombosis or acute territ orial infarct. There is mild atrophy with prominence of the extra-axial spaces. Mild sinus mucosal th ickening is present. There are no significant calvarial abnormalities. IMPRESSION: 1. No acute intracranial findings. 2. 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 ACT 112: Negative or not required by law. Electronically signed by: Jacobo Carlin M.D. 01/13/2022 9:55 AM
--- NOTE | 2022-01-13 10:00 | CT Scan Report ---
CTA ANGIOGRAPHY OF THE HEAD CLINICAL HISTORY: Stroke Like Symptoms COMPARISON STUDY: No previous studies for comparison. TECHNIQUE: Helical axial images of the head were obtained following uneventful intravenous administr ation of 116 cc of Optiray. Sagittal and coronal reconstructions were viewed as well as maximal inten sity projections on an independent 3-D workstation. Automated exposure control was utilized for the study. A dose lowering technique was utilized adhering to the principles of ALARA. FINDINGS: The bilateral M1 and [id number] are patent. No central vessel occlusion is identified. Ther e is mild plaque within the bilateral cavernous carotids without stenosis. Both anterior cerebral art eries arise from the left internal carotid artery. This represents an anatomic variant. The posterior circulation is intact. No central vessel occlusion is noted. Encephalomalacia within the left occipi christopher lobe is noted. The ventricular system is unremarkable. Basal cisterns are patent. There is no int racranial aneurysm or dissection. IMPRESSION: 1. No central vessel occlusion. No intracranial aneurysm. 2. Mild calcified plaque within bilateral cavernous carotids without significant stenosis. 3. 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 ACT 112: Negative or not required by law. Electronically signed by: Jacobo Carlin M.D. 01/13/2022 9:58 AM
[2022-01-13] MEDS ORDERED: LORazepam 2 MG/2 ML SYR ONE (10:10)
[2022-01-13] MEDS ORDERED: LORazepam 0.5 MG in SYRINGE 0.25 ML IV ONE (10:15)
--- NOTE | 2022-01-13 10:30 | Magnetic Resonance Report ---
MRI OF THE BRAIN WITHOUT IV CONTRAST CLINICAL HISTORY: Blurry vision. COMPARISON STUDY: CT of the brain dated 01/13/2022. TECHNIQUE: MRI of the brain was performed utilizing various T1 and T2-weighted sequences in the axial , sagittal, and coronal planes. IV contrast was not administered for this examination. FINDINGS: Brain parenchyma: There is an approximately 5 cm focus of restricted diffusion in the right occipital cortex consistent with an acute to subacute infarct. There is mild surrounding edema. No additional foci of restricted diffusion are identified. There is no hemorrhage or midline shift. Left occipital encephalomalacia is consistent with a remote infarct. There is age-related involutional change noting mild to moderate subcortical and periventricular microangiopathic disease. The cerebellar tonsils ar e normal in configuration. Ventricles, sulci, and cisterns: Prominent secondary to involutional change. Pituitary and sella: Unremarkable. Intracranial vasculature: Normal flow voids are maintained at the skull base. Orbits: The bony orbits are grossly intact. Orbital contents are normal in appearance noting bilatera l ocular lens implants. Sinuses and mastoids: There is moderate mucosal thickening within the ethmoid sinuses. Trace mucosal thickening is noted in the maxillary antra and frontal sinuses. The mastoid air cells are clear. Calvarium: Unremarkable. Cervical cord: Partially visualized cervical spinal cord is normal in morphology and signal intensity . IMPRESSION: 1. There is a large acute to subacute right occipital lobe infarct as above. 2. There is no hemorrhage or midline shift. 3. No additional foci of acute ischemia are identified. 4. Remote left occipital lobe infarct. ACT 112: Negative or not required by law. Electronically signed by: Geovani Best M.D. 01/13/2022 10:27 AM
--- NOTE | 2022-01-13 11:40 | Neurology Consultation ---
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 This was likely thrombotic. The patient was not on any anticoagulant or antiplatelet medication but he does have a pacemaker. Patient suffered a remote left occipital stroke which has left him with a chronic dense right homonymous hemianopsia. On neurologic examination he has no other focal deficits, meningeal signs, or encephalopathy. He does have sensory loss in the feet consistent with a sensory polyneuropathy. Fortunately, he does not have much in the way of a sensory ataxia. Recommendations: 1. Initiate antiplatelet medication -clopidogrel 75 mg a day. 2. follow-up with an [employer] etl developer. I told him he cannot drive until cleared by the oracle etl developer. 3. increase activity as able but if he goes home he would need to have someone with him because his vision is not good enough to be by himself. 4. control blood pressure as you are doing, aiming for a mean arterial pressure of 95-100. 5. continue atorvastatin 40 mg daily. He would not be a high dose statin candidate and blue of his lipid parameters (total cholesterol less than 150) and greater than age 79. overall, I spent a total of 90 minutes with this case including review of records, review of MRI films, direct evaluation the patient at bedside, and discussion of the case with the patient and son at bedside, RN at bedside, and Uzma Lopez occluding differential diagnosis and treatment options History of Present Illness Reason for Consultation: Patient is an 81-year-old, who I was asked to see at the request of Yung Salamanca, for neurologic consultation regarding new onset vision loss. Requesting Physician: Yung Salamanca Attending Physician: Erwin Camacho MD History of Present Illness this patient has a history of multiple strokes in the past ( at least 8-10 years ago) 1 of which resulted in permanent vision loss to the right in each eye. Interestingly, he still drives by turning his head to the side and using mirrors. he was not on any antiplatelet medication. About 8-10 years ago he was put on a pacemaker for cardiac dysrhythmias (and apparently led to these strokes). He has not had any issues up until yesterday. He does have a history of dyslipidemia and hypertension. Patient was sitting watching TV, when relatively suddenly, around 2200, on January 12, he had visual loss off to the left. It was dark although he still could make out shapes. He could not use is phone so he walked across the highway to his son's house. He arrived to the emergency room January 12 at 2358, with a temperature of 36.3, pulse 109 and regular, blood pressure 136/94 with a respiratory rate of 18 and comfortable. O2 saturation was 97%. On exam, he had an NIH stroke scale of 1 because of some visual field cuts. He had no other motor or sensory issues or problems including no weakness or numbness, speech or mentation problems otherwise. CT scan of the head showed no acute changes but there was an old left occipital infarct. CT angiography of the head and neck were largely unremarkable , although he had some plaque in the cavernous portions of his internal carotid arteries bilaterally. MRI of the brain showed a large acute / subacute right occipital infarct without hemorrhage. The old left occipital infarct was seen. I reviewed these films. CBC was unremarkable. Sed rate was 10. Chem profile showed an elevated BUN creatinine of 24 and 1.65. Glucose was 117. Liver profile was unremarkable. He had a TSH which was markedly elevated in May of this year ( 14.8) and most recent TSH on October 19 was 4.6. Echocardiogram showed left ventricular hypertrophy but no change compared to October of 2020. Patient states that his vision to the left this morning is improved. He stated that he only had "20%" of his vision last night off to the left, and now it is about "50%". Allergies Allergy/AdvReac Type Severity Reaction Status Date / Time trimethoprim Allergy Unknown Verified 10/18/21 11:09 bupropion AdvReac Severe shortness Verified 10/18/21 11:09 of breath Home Medications Medication Instructions Recorded Confirmed Type aspirin 81 mg tablet,delayed 81 mg PO DAILY #30 tabs 07/19/21 10/18/21 Rx release (Adult Low Dose Aspirin) alprazolam 0.5 mg tablet 0.5 mg PO TID PRN Anxiety #90 tabs 10/10/21 10/18/21 Rx lisinopril 2.5 mg tablet 2.5 mg PO QPM #90 tabs 10/10/21 10/18/21 Rx pravastatin 40 mg tablet 40 mg PO HS #90 tabs 10/10/21 10/18/21 Rx tamsulosin 0.4 mg capsule 0.8 mg PO HS #180 caps 10/10/21 10/18/21 Rx trazodone 100 mg tablet 100 mg PO HS #90 tabs 10/10/21 10/18/21 Rx zolpidem 10 mg tablet 10 mg PO HS #30 tabs 10/10/21 10/18/21 Rx ipratropium bromide 21 mcg (0.03 2 spray intranasal TID #30 mL 01/10/22 Rx %) nasal spray atorvastatin 40 mg tablet 40 mg PO DAILY #30 tabs 01/13/22 Rx clopidogrel 75 mg tablet 75 mg PO DAILY #60 tabs 01/13/22 Rx Patient History Medical History BLAKE (acute kidney injury) Anxiety BPH (benign prostatic hyperplasia) CAD (coronary artery disease) CVA (cerebral vascular accident) Elevated prostate specific antigen (PSA) HLD (hyperlipidemia) HTN (hypertension) with goal to be determined Pacemaker Prostatitis Renal cyst Renal lesion Surgical History Status post biventricular pacemaker Family History Father Rheumatic fever Denies family history of Colon cancer Ovarian cancer Prostate cancer Myocardial infarction Breast cancer Social History Smoking Status: Former smoker Tobacco Type: Cigarettes Second Hand Exposure: No; Hx Alcohol Use: No Hx Substance Use: No Preferred Language: Slovak Communication Ability: Effective Visual Impairment: No Limitations Hearing Ability: Normal Traffic Clerk Required: No Beliefs That Will Affect Care: None Current Living Situation: Alone current occupational status: retired Other Information That Helps Us Care for You: No Feels Safe at Home: Yes Safety Concerns: Feels Safe At This Time Childhood Exposure to Second-Hand Smoke: No Dental Care, Regularly: Yes Physical Activity Frequency: Does not Exercise Seatbelt Use: always Sunscreen Use: No Assistive Devices: None Review of Systems Constitutional: no fever, no fatigue and no weakness Eyes: + loss of peripheral vision and + worsening vision; no diplopia and no eye pain Ear, Nose, Mouth, Throat: + hearing loss; no ear pain, no tinnitus, no dizziness, no snoring, no hoarseness and no dysphagia Respiratory: no cough and no dyspnea Cardiovascular: no chest pain, no palpitations and no lightheadedness Gastrointestinal: no abdominal pain, no nausea and no vomiting Musculoskeletal: no back pain, no neck pain, no radicular pain, no joint pain and no myalgia Integumentary: no rash and no lesions Neurologic: no gait abnormality, no localized weakness, no generalized weakness, no tingling, no numbness, no tremor(s), no abnormal movements, no headache(s), no abnormal speech, no confusion and no memory loss Psychiatric: no depression, no irritability, no anxiety, no difficulty concentrating, no confusion and no hallucinations Endocrine: no fatigue and no flushing Hematologic / Lymphatic: no easy bleeding and no easy bruising Allergy / Immunological: no urticaria and no problem reported Exam (Neuro) Physical Exam: The patient is right-handed. The patient is awake, alert, and attentive. Speech is normal without any aphasia or dysarthria. The patient can name objects, repeat phrases, and has normal spontaneous speech. Mentation and thought processes are intact, with orientation to person, place and time, and normal fund of knowledge. Attention and concentration are normal. Mood and affect are normal and appropriate. General appearance and grooming are normal. Short and long-term memory are intact. The discs are sharp with positive venous pulsations bilaterally. There are no exudates, hemorrhages, or blood vessel changes seen. Pupils are 4 mm bilaterally and reactive to light. Extraocular eye muscles are intact without nystagmus. Patient has a rather dense right homonymous hemianopsia. He can see objects and fingers to the left. There are no deficits to sensation in the face in all 3 distributions of the fifth cranial nerve bilaterally. Corneal reflexes are positive bilaterally. Facial strength and symmetry was normal bilaterally. Hearing seems normal bilaterally. Palate moves well without asymmetry. There is normal sternocleidomastoid and trapezius (shoulder shrug) strength bilaterally. Tongue is midline with good strength bilaterally. Neck has a full range of motion without discomfort. There are no cervical bruits bilaterally. There are no cranial or ocular bruits. Heart is without murmur. There is a regular rhythm and rate. Cervical, thoracic, and lumbar spine are nontender to palpation. Gait is narrow based, with good arm swing, turns, and stance. Balance is normal eyes open or closed. With outstretched arms there is no drift. There are no resting, postural, or action tremors. There is no ataxia with finger to nose testing. There is good facility in the hands. No other abnormal involuntary movements are noted. Motor strength is 5/5 diffusely in the arms bilaterally including deltoids, biceps, triceps, brachioradialis, wrist flexors and extensors, accounts payable or receivable clerk, and intrinsic hand muscles. Motor strength is 5/5 diffusely in the legs bilaterally including hip flexors, quadriceps, hamstrings, gastrocnemius, tibialis anterior, tibialis posterior, and Peroneii muscles. Toe extensors are normal and there is good bulk in the extensor digitorum brevis muscles bilaterally. The limbs have good tone without rigidity or spasticity. There is no atrophy noted in the muscles. Muscle bulk is normal, there is no tenderness to palpation, no myotonia to percussion, and no fasciculations seen. Sensory examination Reveals a decreased sensation in his feet in a stocking distribution to the mid lower legs bilaterally. Hands are spared. Reflexes are 2/4 in the biceps, triceps, brachioradialis, and quadriceps tendons bilaterally. Achilles reflexes were absent bilaterally. There is no clonus bilaterally. Toes are downgoing with plantar stimulation bilaterally. Peripheral pulses are present and of normal quality distally in all 4 limbs. There is no peripheral edema noted in the limbs. Results & Data ([facility]) Vital Signs (Past 12 Hours) Vital Signs Temp Pulse Pulse Resp BP BP Pulse Ox 01/13/22 07:16 60 18 131/73 98 01/13/22 05:16 67 18 132/76 96 01/13/22 02:10 01/13/22 01:30 85 22 129/89 94 01/13/22 01:09 83 21 107/69 97 01/13/22 00:33 87 22 142/96 H 96 01/12/22 23:58 36.3 C L 109 H 18 136/94 97 O2 Del Method 01/13/22 07:16 01/13/22 05:16 Room Air 01/13/22 02:10 Room Air 01/13/22 01:30 01/13/22 01:09 01/13/22 00:33 Room Air 01/12/22 23:58 Room Air PG Care Time/CCT Total # of Minutes Spent Total Time Spent with Patient: Total time spent is greater than 50% in coordination of care (as documented) at patient's floor/unit and/or counseling patient: Coding Level of Care Code INT OBSERVATION CARE 70M LVL 3 Diagnoses Acute CVA (cerebrovascular accident) I63.9 Bilateral visual loss H54.3 Peripheral neuropathy G62.9 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
[2022-01-13] MEDS ORDERED: STROKE PATIENT DISCHARGE STA (11:55)
--- NOTE | 2022-01-13 11:59 | Discharge Summary ---
Date of Service January 13, 2022 Admission HPI Per Admitting Provider This is an 81-year-old male with a history of bilateral lens replacements, cataracts, hypertension, hyperlipidemia, anxiety, renal lesion, coronary artery disease, left bundle branch block status post pacemaker placement, prior CVA (with residual peripheral field deficits in RIGHT eye, temporal sides - per him), chronic bacterial prostatitis who presented to [facility] for evaluation of visual disturbances. Patient says that he was in his normal health up through today. He got his COVID and flu shots at 1630. He was watching TV around 20-30 when he noticed an acute onset change in vision that he describes as "really fog glass with some distortion ", over both of his eyes. He said it does not matter if he is looking at things close or far away, but they all have the same appearance. He did not have his reading glasses on at this time per ED provider. He denies any double vision. He denies any scotoma like appearances. Denies any curtains coming down on either of his eyes. He does think that he developed a right sided temporal headache around this time, but did not think much about it because it was not severe and his vision issues were more concerning to them. He denies any onset of nausea. Unfortunately, since coming to the emergency department, none of his symptoms have improved at all. He says that he would be considered "legally blind "right now if he were to have formal vision assessment. He denies any eye pain. Denies any recent fever, chills, sweats. Denies any numbness or tingling in any of extremitieshe does say that he has had some sensory changes of the bottom of his feet over the last year or so. He denies any issues moving his arms or legs. Denies any dysarthria or aphasia throughout this process. Of note, he does say that in [place] when he was living there, he had 4 TIAs. He said 1 of these was associated with "not being able to understand what I was reading. "He has difficulty remembering the other events. He says that his CVA history is related to prior arrhythmias that he no longer has, thinks to his pacemaker. He says that his heart would intermittently "stop ". He reports following a dentist regularly and just had work done a month ago. He denies pain. Endorses brushing. Medications reviewed and include alprazolam, aspirin, ipratropium nasal spray, lisinopril, pravastatin, tamsulosin, trazodone, zolpidem. Upon arrival in the ED, patient was found to have tachycardia to 109 and mildly low temperature 36.3. Otherwise normal. Labs demonstrated BUN 23/creatinine 1.69 (elevated from 1.49 in 10/2021). Glucose 94. CTA head: "Negative CT angiogram of the head. No comparisons. Left maxillary dental disease with periapical lucency concerning for abscess. "CTA neck: "Negative CTA angiogram of the neck. Bilateral thyroid nodules. Advanced centrilobular emphysematous changes. Dental caries with periapical lucency about 2 concerning for periapical abscess. Findings concerning for esophagitis. "CT head: "No evidence of acute intracranial pathology. Remote ischemic injury of the left occipital lobe with encephalomalacia and gliosis." He was given fluids and aspirin. STROKE ALERT was called - thrombolysis was not recommended. Principal Diagnosis Acute occipital CVA Discharge Exam General: A&Ox3. NAD. Cooperative. HEENT: Atraumatic, normocephalic. Pulm: CTAB A&P. -wheezes, -rales, -rhonchi. Symmetrical chest rise. No increased work of breathing. No respiratory distress. Cardiac: RRR, -mrg. Radial pulses intact and symmetrical. Abdominal: Nontender, nondistended, soft. BS present. CRANIAL NERVES: II: Pupils equal and reactive. Right eye lateral hemianopsia. Remaining visual michael in right and left eye clouded with spotty poor acuity. III, IV, : EOM intact, no gaze preference or deviation, no nystagmus. V: normal sensation in V1, V2, and V3 segments bilaterally VII: no asymmetry, no nasolabial fold flattening VIII: normal hearing to speech IX, X: normal palatal elevation, no uvular deviation XI: 5/5 head turn and 5/5 shoulder shrug bilaterally XII: midline tongue protrusion Shoulder flexion, elbow flexion, wrist flexion/extension, hip flexion, ankle dorsiflexion/plantarflexion 5/5 bilaterally without asymmetry. Discharge Data Allergies Allergy/AdvReac Type Severity Reaction Status Date / Time trimethoprim Allergy Unknown Verified 10/18/21 11:09 bupropion AdvReac Severe shortness Verified 10/18/21 11:09 of breath Consultations 01/13/22 01:34 ED Decision to Admit Stat 01/13/22 04:05 Consult Neurology Routine Ordered Studies 01/13/22 00:09 CT angio head w con Stat CT angio neck with con Stat CT head/brain wo con Stat 01/13/22 07:00 MR brain wo con Routine Hospital Course (1) Bilateral visual loss: This is an 81-year-old male with a history of hypertension, hyperlipidemia, anxiety, status-post post pacemaker placement (for "arrhythmia" - unknown exact etiology - received in [place]), related prior CVA (with residual peripheral field deficits in RIGHT eye, temporal sides - per him), suspected CAD who presented to [facility] for evaluation of acute-onset, painless bilateral visual acuity changes. Acute vision loss 2/2 occipital CVA Patient with reported history of prior CVA related to arrhythmia (per patient) and multiple TIAs when he lived in [place] 20-30 on day of admission, reported acute onset, painless visual acuity changes in both eyes without other peripheral symptoms CTA head/neck ([facility]) without any acute insults MRI: 1. There is a large acute to subacute right occipital lobe infarct as ab ove. 2. There is no hemorrhage or midline shift. 3. No additional foci of acute ischemia are identified. 4. Remote left occipital lobe infarct. Discussed with neurology. Patient strongly wished for discharge home. Okay for discharge but do not recommend patient be alone, and patient may not drive at this time. Patient agreeable to this. Medication changes as below. Pravastatin switched to atorvastatin 40 mg Patient placed on Plavix 75 mg daily. was not taking a daily baby aspirin prior to admission TTE: EF 50-55%, no regional wall motion abnormalities, no significant valvular abnormalities Ophthalmology follow-up pending (2) HTN (hypertension) with goal to be determined: HTN, Suspected CAD Continue metoprolol, lisinopril Statin increased as noted (3) Status post biventricular pacemaker: s/p Dual Chamber Pacemaker - Exactly reason for placement is unclear - arrhythmia-related when he lived in [place] - Follows with Dr. Barney - if ongoing concerns for possible failure of device, could consider cardiology consultation for interrogation (4) Benign prostatic hyperplasia: BPH - Hold BPH for ongoing concerns above (5) Anxiety: RAJ - Patient on both alprazolam (up to t.i.d.) and zolpidem -- attempted weening in past per PCP notes but unfortunately has been unsuccessful - Continue both for now (6) Dental alveolar anomalies: Dental Abnormalities - CT demonstrating (STAT-rad): "Dental caries with periapical lucency about 2 concerning for periapical abscess." - Patient reports having dental work done approx. 1 month ago and regularly brushing his teeth, no pain; no appreciable findings on exam - Await over-read by [facility] for confirmation and before intervention -- No findings on labs, appearance, or vitals c/w systemic infection; hold on ABX for now - If positive, should consider close f/u with dentistry or possible mobile consult with OMFS Plan Code: DNR/DNI Diet: HH PPX: SCDs Dispo: MS/T Consults: Neurology, PT, OT Total Time Total Time Spent Total Time Spent (In Minutes): Time spend day of discharge 35 minutes including direct patient care, documentation, review of labs and images, and coordination of care. Discharge Plan Discharge Items Patient Disposition: Home - Self-Care Reason For Visit: ACUTE VISION CHANGE, POSSIBLE CVA Discharge Diagnosis: Acute Occipital Stroke Activity: Per Instructions section Non-emergency contact: Primary Care Provider, Neurologist and Measurer Call non-emergency contact if: you have any medication questions and your symptoms worsen Follow-up/Referrals: Miguel Angel Mondragon MD [Physician] - Nasir Bai III, CRNP [Primary Care Provider] - Lyndon Pathak OD [Outside Practitioners] - Diet: Heart Healthy Addtl Attending Provider Instructions: You were seen in the hospital for acute vision loss.A CAT scan of your head and neck did not show any acute findings. A follow-up MRI showed a large occipital stroke that is the cause of your vision loss. It is not safe to drive at this time, do not drive. Hospital observation versus discharge home were discussed with you, you strongly prefer discharge home. You should not drive or be alone while recovering from your acute stroke, it is reasonable to have your son pick you up from the hospital and to return home. You have been prescribed medication/medications have been changed as below to help prevent future strokes. Please take Plavix 75 mg daily. This is similar to aspirin, and can help reduce the risk of strokes. Please take atorvastatin 40 mg by mouth daily. This is a cholesterol medication to help reduce risk of stroke. This replaces your prior pravastatin, please stop taking pravastatin at this time. Please follow-up with your primary care physician within 1 to 2 weeks. You should have a ophthalmology appointment arranged for vision check and follow-up of progression of your vision. If you develop any new or worsening symptoms including fever, chills, sweats, chest pain, chest pressure, difficulty breathing, uncontrolled nausea/vomiting, rash, wheezing, passing out or nearly passing out, bleeding, black/bloody bowel movements, or other new or concerning symptoms please call your primary care physician, or call 911 for re-evaluation in the emergency department if you are very concerned. Pending Studies at Discharge: No Stand-Alone Forms: My [facility], Smoking Cessation Medications and DC Order Prescriptions: New atorvastatin 40 mg tablet 40 mg PO DAILY Qty: 30 2RF clopidogrel 75 mg tablet 75 mg PO DAILY Qty: 60 0RF Continued trazodone 100 mg tablet 100 mg PO HS Qty: 90 1RF tamsulosin 0.4 mg capsule 0.8 mg PO HS Qty: 180 1RF lisinopril 2.5 mg tablet 2.5 mg PO QPM Qty: 90 1RF zolpidem 10 mg tablet 10 mg PO HS Qty: 30 2RF alprazolam 0.5 mg tablet 0.5 mg PO TID PRN (Reason: Anxiety) Qty: 90 2RF ipratropium bromide 21 mcg (0.03 %) spray,non-aerosol 2 spray intranasal TID Qty: 30 2RF Rx Instructions: administer into each nostril Discontinued pravastatin 40 mg tablet 40 mg PO HS Qty: 90 1RF aspirin [Adult Low Dose Aspirin] 81 mg tablet,delayed release (DR/EC) 81 mg PO DAILY Qty: 30 2RF Discharge Orders: Discharge Order (Routine); Ordered 01/13/22 Ordered By: Kenneth Lopez Admission Data Admit Date/Time: 01/13/22 02:46 Attending Provider: Erwin Camacho Admit Provider: Yung Salamanca Primary Care Provider: Nasir Bai III Other Providers: Erwin Camacho ; Miguel Angel Mondragon Coding Level of Care Code D/C DAY MANAGEMENT >30 MINS Diagnoses Bilateral visual loss H54.3 HTN (hypertension) with goal to be determined I10 Status post biventricular pacemaker Z95.0 Benign prostatic hyperplasia N40.1; R35.0 Lower urinary tract symptom detail: urinary frequency Lower urinary tract symptom presence: symptoms present Anxiety F41.9 Dental alveolar anomalies M26.70
--- NOTE | 2022-01-13 13:56 | Pharmacy Report ---
Pharmacist Stroke Counseling - Date of Service January 13, 2022 - Scope: Pharmacy has been consulted to provide medication discharge counseling for this patient admitted with ischemic stroke as per the Pharmacist Discharge Counseling for Stroke Patients Protocol. - Medications on Discharge: New Rx's Medication Instructions Recorded alprazolam 0.5 mg tablet 0.5 mg PO TID PRN Anxiety #90 tabs 10/10/21 lisinopril 2.5 mg tablet 2.5 mg PO QPM #90 tabs 10/10/21 tamsulosin 0.4 mg capsule 0.8 mg PO HS #180 caps 10/10/21 trazodone 100 mg tablet 100 mg PO HS #90 tabs 10/10/21 zolpidem 10 mg tablet 10 mg PO HS #30 tabs 10/10/21 ipratropium bromide 21 mcg (0.03 2 spray intranasal TID #30 mL 01/10/22 %) nasal spray atorvastatin 40 mg tablet 40 mg PO DAILY #30 tabs 01/13/22 clopidogrel 75 mg tablet 75 mg PO DAILY #60 tabs 01/13/22 - Action: The above medications, specifically ones for stroke treatment/prophylaxis, have been reviewed in detail with the patient prior to discharge. This includes indication, common adverse reactions, drug interactions, and medication administration. Medication counseling has been employed using the teach-back method to ensure understanding. - Outcome: The patient demonstrated understanding of the medications. Additional comments: - None Thank you for allowing pharmacy to be involved in the care of this patient. Please call [phone] with any additional questions
[2022-01-13] MEDS ORDERED: lisinopril 2.5 MG TAB PO SCH (21:00)
[2022-01-13] MEDS ORDERED: traZODone HCL 100 MG TAB PO SCH (21:00)
[2022-01-13] MEDS ORDERED: PRAVASTATIN SOD 40 MG TAB PO SCH (21:00)
--- NOTE | 2022-01-13 21:23 | Electrocardiogram Report ---
Test Reason : Blood Pressure : / mmHG Vent. Rate : 099 BPM Atrial Rate : 099 BPM P-R Int : 192 ms QRS Dur : 126 ms QT Int : 380 ms P-R-T Axes : 041 -52 099 degrees QTc Int : 487 ms Normal sinus rhythm Left axis deviation Left bundle branch block Abnormal ECG When compared with ECG of 18-MAR-2020 14:43, No significant change was found Confirmed by Tesfaye Foster ([id number]) on 01/13/2022 9:23:15 PM Referred By: REFERRED SELF Confirmed By:Tesfaye Foster
--- NOTE | 2022-01-14 05:12 | Billing Data ---
Date of Service January 14, 2022 Coding Level of Care Code INT OBSERVATION CARE 70M LVL 3
== END 2022-01-13 12:45 | disposition home or self-care (01) ==
LOC: EDINP 23:54 → ED 23:54 → SUATTDRO 01-13 02:46 → EDINP 01-13 04:41
DX: H54.3 Unqualified visual loss, both eyes; Z88.8 Allergy status to other drugs, medicaments and biological substances; Z88.1 Allergy status to other antibiotic agents; Z87.891 Personal history of nicotine dependence; I10 Essential (primary) hypertension; Z86.73 Personal history of transient ischemic attack (TIA), and cerebral infarction without residual deficits; M26.70 Unspecified alveolar anomaly; H53.469 Homonymous bilateral field defects, unspecified side; N40.1 Benign prostatic hyperplasia with lower urinary tract symptoms; Z79.899 Other long term (current) drug therapy; I63.89 Other cerebral infarction; Z79.02 Long term (current) use of antithrombotics/antiplatelets; Z95.0 Presence of cardiac pacemaker